=== PATIENT | female | born 1945 | race Caucasian/White ===

== ENCOUNTER 2024-12-09 11:11 | Emergency (ER) | payer MEDICARE, SELFPAY ==
[2024-12-09] VITALS (7 sets, daily range): BP systolic 161–187; BP diastolic 45–68; PULSE 59–68; RESP 12–16; TEMP 36.4–36.6; O2SAT 95–100
--- NOTE | ~2024-12-09 | XR_ITS ---
XR chest 2V 12/09/2024 12:26 Indication: Chest pain Procedure: 2 view chest Comparison: No prior studies for comparison. Findings: Heart size normal. Right basilar infiltrates may represent atelectasis or developing pneumo amelia. No significant effusion, edema or pneumothorax. No acute osseous abnormality. Impression: 1: Right basilar infiltrates, atelectasis versus pneumonia. Reviewed, dictated and finalized at location A. Impression: 1: Right basilar infiltrates, atelectasis versus pneumonia.
--- NOTE | 2024-12-09 11:12 | ECG_ITS ---
Test Date: 2024-12-09 10:56:33 Measurements Intervals [place] Rate: 58 P: 12 TX: 292 QRS: 27 QRSD: 94 T: 84 QT: 415 QTc: 408 Interpretive Statements SINUS BRADYCARDIA WITH FIRST DEGREE AV BLOCK NONSPECIFIC T-WAVE ABNORMALITY- HIGH LATERAL LEADS BASELINE ARTIFACT- I, III, AVR, AVL, AVF BORDERLINE ECG No previous ECG available for comparison Electronically Signed On 12-09-2024 11:22:38 CDT by Yunier Vidales D.O.
[2024-12-09 11:41] LABS: Basophils Percent Auto 0.9 % (0.2-1.2); Eosinophils Absolute Auto 0.2 K/mm3 (0-0.3); Eosinophils Percent Auto 3.7 % (0-4.4); Hematocrit 40.8 % (37.0-47.0); Immature Granulocyte Absolute 0.02 K/mm3 (0.00-0.031); Immature Granulocyte Percent A 0.5 % (0-0.5); Lymphocytes Percent Auto 25.4 % (18.3-44.2); Mean Corpuscular HGB Conc 31.9 g/dl (32-36); Mean Corpuscular Volume 90.9 fl (80-100); Mean Platelet Volume 9.7 fl (7.4-10.4); Monocytes Absolute Auto 0.5 K/mm3 (0.1-0.6); Monocytes Percent Auto 10.4 % (2.6-8.5); Neutrophils Absolute Auto 2.6 K/mm3 (1.3-6.7); Neutrophils Percent Auto 59.1 % (45.5-73.1); Platelet Count Result 166 k/mm3 (150-375); Red Blood Count 4.49 M/mm3 (4.2-5.4); Red Cell Distribution Width 12.9 % (11.5-14.5); White Blood Count 4.3 K/mm3 (4.5-10.0)
--- NOTE | 2024-12-09 11:43 | PC.NURSE ---
1115-Bedside report-met patient and daughter
[2024-12-09 11:56] LABS: Alanine Aminotransferase 28 U/L (6-35); Albumin Level 4.1 g/dL (3.5-5.1); Alkaline Phosphatase 80 U/L (38-126); Anion Gap 7 mmol/L (4-12); Aspartate Amino Transferase 34 U/L (14-36); Bilirubin,Total 0.4 mg/dL (0.2-1.3); Blood Urea Nitrogen 15 mg/dL (7-17); Calcium 9.6 mg/dL (8.4-10.2); Carbon Dioxide 27 mmol/L (22-30); Chloride 103 mmol/L (98-107); Estimated CRCL calculation 67 ml/min; Estimated Glomerular Filt Rate > 60; Glucose 106 mg/dL (65-110); Lipase 65 U/L (23-300); Potassium 4.1 mmol/L (3.4-5.0); Sodium 137 mmol/L (137-145); Total Protein 7.2 g/dL (6.3-8.2)
[2024-12-09 12:07] LABS: Troponin I < 0.012 ng/mL (0.000-0.034)
--- OUTSIDE RECORDS SUMMARY | 2024-12-09 12:15 | XMS_ITS | Encounter Summary ---
Author Organization [facility] Address [address] [facility] [place] [address] Phone Care Team Providers Care Vocational Training Instructor Name Role Phone Joe Blount DO Unavailable Jorge Wallace MD Unavailable Luigi Gamez OD Unavailable [phone] Varun Fofana DC Unavailable Rodger Dawson APRN, FLOAT OPERATOR Primary Care Provi mai Reason for Visit * Reason Onset Date Comments Chest Pain 12/09/2024 Encounter Details Date Type Department Care Team (Late st Contact Info) Description 12/09/2024 Nurse Triage [facility] [address] [place] [address] Rodger Dawson APRN, FLOAT OPERATOR [address] [place] [address] Chest Pain Social History Tobacco Use Types Packs/Day Years Used Date Smoking Tobacco: Never Smokeless Tobacco: Never Alcohol Use Standard Drinks/Week Comments Yes 0 (1 standard drink = 0.6 oz pur e alcohol) one glass red wine at bedtime [facility] Utilities Answer Date Recorded In the past 12 months has e electric, gas, oil, or water company threatened to shut off services in your home? Patient declined 07/25/2023 Social Connection and Isolation Panel [NHANES] A nswer Date Recorded In a typical week, how many times do you talk on the phone with family, friends, or neighbors? Patient declined 07/25/2023 How often do you get togethe r with friends or relatives? Patient declined 07/25/2023 How often do you attend yarsanism or jehovah's witness serv ices? Patient declined 07/25/2023 Do you belong to any clubs o r organizations such as yarsanism groups, unions, fraternal or athletic groups, or school groups? Patient declined 07/25/2023 How often do you attend meet ings of the clubs or organizations you belong to? Patient declined 07/25/2023 Are you , , di vorced, , never , or living with a partner? Patient declined 07/25/2023 AUDIT-C Answer Date Recorded Q1: How often do you have a drink containing alc ohol? Patient declined 07/25/2023 Q2: How many drinks containi ng alcohol do you have on a typical day when you are drinking? Patient declined 07/25/2023 Q3: How often do you have si x or more drinks on one occasion? Patient declined 07/25/2023 Overall Financial Resource Strain (CARDIA) Answe r Date Recorded How hard is it for you to pa y for the very basics like food, housing, medical care, and heating? Patient declined 07/25/2023 PHQ-2 Answer Date Recorded Total Score - Questions 1-9 0 07/08 [facility] - Occupational Stress Questionnaire Answer Date Recorded Do you feel stress - tense, restless, nervous, or anxious, or unable to sleep at night because your mind is troubled all the time - these days? Patient declined 07/25/2023 Exercise Vital Sign Answer Date Recorde d On average, how many days pe r week do you engage in moderate to strenuous exercise (like a brisk walk)? Patient declined On average, how many minutes do you engage in exercise at this level? Patient declined 07/25/2023 Hunger Vital Sign Answer Date Recorded Within the past 12 months, y ou worried that your food would run out before you got the money to buy more. Patient declined Within the past 12 months, t he food you bought just didn't last and you didn't have money to get more. Patient declined PRAPARE - Transportation Answer Date Re corded In the past 12 months, has l ack of transportation kept you from medical appointments or from getting medications? Patient declined 07/25/2023 Lack of Transportation (Non-Medical) Not on file 07/25/2023 Housing Stability Vital Sign Answer Arya e Recorded In the last 12 months, was t here a time when you were not able to pay the mortgage or rent on time? Patient declined 07/25/19 24 Number of Places Lived in the Last Year Not on f ile 07/25/2023 In the last 12 months, was t here a time when you did not have a steady place to sleep or slept in a long-term (including now)? Patient declined 07/25/2023 Education Answer Date Recorded What is the highest level of school you have completed or the highest degree you have received? Some college, no degree 03/21/2021 Sexually Active Control Partners Comments Never Comments No Sex and Gender Information Value Date Recorded Sex Assigned at Not on file Legal Sex Female 3:44 AM NON LICENSED NUCLEAR PLANT OPERATOR Gender Identity Not on file Sexual Orientation Not on file documented as of this encounter Miscellaneous Notes * Telephone Encounter - Brianna Byrne RN - 12/09/2024 9:43 AM CDT SITUATION: Patient calling to report symptoms BACKGROUND: Patient contacting PCP office. Continuous chest pain past 5 minutes or greater Patient driving in [place] with daughter at this time ASSESSMENT: Symptom Description / Location: Chest pain just above right breast past 5 minutes; strong, heavy ache Radiating up toward shoulder and into jaw RECOMMENDATION: Call 911 now Patient is agreeable to recommendation above. Patient advised to lathe puller now; states she will lathe puller and contact 911 per self Patient advised to return call to PCP office with any further needs Care advice provided per triage guideline. Caller verbalized understanding. - See care advice and disposition for Guideline. First positive answer recorded, all responses to prior questions were negative. If symptoms increase, change or if new symptoms develop, call your health care provider or call back. Recommendations were based on caller information and is not a diagnosis. Verified and reviewed all triage information with caller. Reason for Disposition Chest pain lasting longer than 5 minutes and over 44 years old Protocols used: Chest Pain-A-[place] * Telephone Encounter - Susu Clark - 12/09/2024 9:42 AM CDT Symptom: Chest Pain - Adult Outcome: Transfer to obedience trainer queue Reason: Caller denied all higher acuity questions The caller accepted this outcome. Caller Denied: * Trouble breathing * Passed out * Severe pain now * Heaviness on chest documented in this encounter Plan of Treatment Upcoming Encounters Date Type Department Care Team (Late st Contact Info) Description 02/18/2025 9:15 AM CDT Appointment [facility] Mammography [address] [place] [address] Rodger Dawson APRN, FLOAT OPERATOR [address] [place], [place] [id number] Discharge Disposition: Discharged to home or Selfcare 02/18/2025 9:30 AM CDT [facility] [address] [place] [address] Rodger Dawson APRN, FLOAT OPERATOR [address] [place] [address] Discharge Disposition: Discharged to home or Selfcare 08/02/2025 10:40 AM NON LICENSED NUCLEAR PLANT OPERATOR Office [facility] - [facility] [address] [place] [address] Rodger Dawson APRN, FLOAT OPERATOR [address] [place] [address] documented as of this encounter Visit Diagnoses Not on filedocumented in this encounter Additional Health Concerns Assessment Noted Time PHQ-9 Depression Total Score: 0 07/30/19 25 9:46 AM NON LICENSED NUCLEAR PLANT OPERATOR documented as of this encounter Care Teams Vocational Training Instructor Relationship Specialty Start Date End Date Rodger Dawson APRN, FLOAT OPERATOR [address] [place], [place] [address] PCP - General Advanced Practice Nurse 07/19/22 Joe Blount DO Consulting Physician Orthopaedic Surgery 12/29/19 Jorge Wallace MD [address] [place] [address] Consulting Physician Cardiovascular Disease - Cardiology 12/29/19 Luigi Gamez OD [address] [place], [place] [id number] Optometry 12/29/19 Varun Fofana DC [address] [place] [address] Chiropractic Medicine 12/29/19 documented as of this encounter
--- OUTSIDE RECORDS SUMMARY | 2024-12-09 12:15 | XMS_ITS | Clinical Summary ---
Author Organization [facility] Address [address] [place] [address] Phone Care Team Providers Care Electrification Adviser Name Role Phone Harris Beck MD Primary Care Provider Rosendo labceci Allergies Active Allergy Reactions Criticality Noted Date Comments Alendronate Sodium Nausea 12/27/2019 Upset and stomach and diarrhea Cephalexin Rash Medium 01/10/2014 Tramadol Other; see comment High 12/17/2018 Light headed and dizziness Medications acetaminophen 325 mg tablet Take 325 mg by mouth Active Active Problems No known active problems Immunizations Immunization Administration Dates Next Due HEP B (Engerix 1ml) 09/28/1999,08/28/1999 Hepatitis A - Adult 08/28/1999 Influenza (Flu Quad PF) 06/11/2005,04/14/1997 Meningococcal (MENOMUNE) 10/22/1999 T-dap (ADACEL) 03/01/2008 TB-PPD 02/22/2004 Td - Adult (PF) 11/18/1997 Unlisted Immunization 10/22/1999,08/28/1999 Social History Tobacco Use Types Packs/Day Years Used Date Smoking Tobacco: Never Smokeless Tobacco: Never Tobacco Cessation:Counseling Given: Not Answered Comments Unknown Sex and Gender Information Value Date Recorded Sex Assigned at Not on file Legal Sex Female 7:59 AM POWER 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 Gender Identity Not on file Sexual Orientation Not on file Plan of Treatment Health Maintenance Due Date Last Done Comments Osteoporosis Screening needs DEXA 1945 Depression Screening 1957 HCPOA Document on File 1995 Zoster (Shingles) Vaccine (1 of 2) 1995 Hepatitis B Vaccines (3 of 3 - 19+ 3-dose series) 02/26/2000 09/28/1999, 08/28/1999 Fall Screening 2010 Screening for Diabetes 03/16/2012 9, 01/18/2009, 09/12/2008, Additional history exists DTaP/Tdap/Td Vaccines (2 - Td or Tdap) 03/01/2018 03/01/2008, 03/01/2008, 11/18/1997 RSV Vaccine (60+/) (1 - 1-dose 75+ series) 2020 Eligible for Subsequent Annual Medicare Wellness Exam 12/28/2020 COVID-19 Vaccine (3 - season) 2024 07/18/2021, 07/07/2021 Influenza Vaccine (Season Ended) 2025 05/27/2016, 06/11/2005, 04/14/1997 Hepatitis A Vaccines Aged Out 08/28/1999 No long er eligible based on patient's age to complete this topic Meningococcal Vaccine (ACWY) Aged Out 10/22/1999, 10/22/1999 No longer eligibl e based on patient's age to complete this topic Pneumococcal Vaccines (50+) Completed 05/08, 04/24/2010, 03/09/2010 Eligible for Initial Annual Medicare Wellness Exam Discontinued 12/29/2019 HIB Vaccines Aged Out No longer eligi ble based on patient's age to complete this topic HPV Vaccines Aged Out No longer eligi ble based on patient's age to complete this topic IPV Vaccines Aged Out No longer eligi ble based on patient's age to complete this topic Meningococcal B Vaccine Aged Out No l onger eligible based on patient's age to complete this topic Rotavirus Vaccines Aged Out No longer eligible based on patient's age to complete this topic Procedures Procedure Name Priority Date/Time Associated Diagnosis Comments COMPREHENSIVE METABOLIC PANEL Routine 03/16/2009 7:08 AM CDT from Last 3 Months or Most Recently Relevant to Health Maintenance Results * (ABNORMAL) COMP METABOLIC PANEL (03/16/2009 7:08 AM CDT) CALCIUM 8.8 8.5 - 10.5 mg/dl [facility] GLUCOSE 113(H) 60 - 99 mg/dl [facility] BUN 16 6 - 20 mg/dl [facility] CREATININE 0.67 0.50 - 1.20 mg/dl [facility] TOTAL PROTEIN 6.5 6.0 - 8.1 gm/dl [facility] ALBUMIN 3.7 3.2 - 5.5 gm/dl [facility] BILIRUBIN, TOTAL 0.4 0.2 - 1.0 mg/dl [facility] AST 25 12 - 42 IU/L [facility] ALT 28 9 - 49 IU/L [facility] ALKALINE PHOSPHATASE 103 42 - 121 IU/L [facility] SODIUM 140 135 - 145 mmol/L [facility] POTASSIUM 4.2 3.6 - 5.0 mmol/L [facility] CHLORIDE 105 101 - 111 mmol/L [facility] CO2 29.3 21.0 - 31.0 mmol/L [facility] Comment:[facility], [address] [place] [address] 03/16/2009 7:08 AM CDT 03/16/2009 10:14 AM CDT Harris Beck MD HEM/CHEM/IMMUN-BLOOD Final Re sult Performing Organization Address City/State/[facility] Co de Phone Number [facility] [address] [place] [address] from Last 3 Months or Most Recently Relevant to Health Maintenance Insurance [facility] MEDICARE ADVANTAGE [employer] MEDICARE ADVANTAGE Care Teams Electrification Adviser Relationship Specialty Start Date End Date Harris Beck MD PCP - General Family Medicine 12/26/21
--- OUTSIDE RECORDS SUMMARY | 2024-12-09 12:15 | XMS_ITS | Encounter Summary ---
Author Organization [facility] Address [address] [place] [address] Phone Care Team Providers Care Regional Intermodal Truck Driver Name Role Phone Harris Beck MD Primary Care Provider Joe Blount DO Unavailable Jorge Wallace MD Unavailable Luigi Gamez OD Unavailable [phone] Varun Fofana DC Unavailable Ragini Baires APRN, CARPET JOURNEYMAN Unavailable [phone] Rodger Dawson APRN, CARPET JOURNEYMAN Primary Care Provi mai Encounter Details Date Type Department Care Team (Late st Contact Info) Description 11/21/2020 Telephone [facility] - [place] [address] [facility] [place] [address] Joe Blount, DO [address] [place], [place] [address] Social History Tobacco Use Types Packs/Day Years Used Date Smoking Tobacco: Never Smokeless Tobacco: Never Alcohol Use Standard Drinks/Week Comments Yes 0 (1 standard drink = 0.6 oz pur e alcohol) one glass red wine at bedtime AUDIT-C Answer Date Recorded Frequency of Alcohol Consumption 4 or more times a week 11/06/2018 Average Number of Drinks 1 or 2 019 Frequency of Binge Drinking Not on file 09/2018 PHQ-2 Answer Date Recorded Total Score - Questions 1-9 0 01/06 Sexually Active Control Partners Comments Never Comments No Sex and Gender Information Value Date Recorded Sex Assigned at Not on file Legal Sex Female 3:44 AM LOFTSMAN Gender Identity Not on file Sexual Orientation Not on file documented as of this encounter Plan of Treatment Upcoming Encounters Date Type Department Care Team (Late st Contact Info) Description 02/18/2025 9:15 AM CDT [facility] [address] [place] [address] Rodger Dawson APRN, CARPET JOURNEYMAN [address] [place] [address] Discharge Disposition: Discharged to home or Selfcare 02/18/2025 9:30 AM CDT Appointment [facility] Mammography [address] [place] [address] Rodger Dawson APRN, CARPET JOURNEYMAN [address] [place] [address] Discharge Disposition: Discharged to home or Selfcare 08/02/2025 10:40 AM LOFTSMAN Office Visit [facility] - [facility] [address] [place] [address] Rodger Dawson APRN, CARPET JOURNEYMAN [address] [place] [address] documented as of this encounter Visit Diagnoses Not on filedocumented in this encounter Additional Health Concerns Infection Onset Date Last Indicated Resolved Time COVID - 19 03/19/2023 03/19/2023 03/29/2023 12:1 6 AM CDT COVID - 19 05/24/2023 05/24/2023 06/03/2023 12:1 6 AM LOFTSMAN Assessment Noted Time PHQ-9 Depression Total Score: 0 02/04/20 10:00 AM CDT documented as of this encounter Care Teams Regional Intermodal Truck Driver Relationship Specialty Start Date End Date Harris Beck MD PCP - General 04/11/09 07/18/22 Rodger Dawson APRN, CARPET JOURNEYMAN [address] [place] [address] PCP - General Advanced Practice Nurse 07/19/22 Joe Blount DO Consulting Physician Orthopaedic Surgery 12/29/19 Jorge Wallace MD [address] [place] [phone] Consulting Physician Cardiovascular Disease - Cardiology 12/29/19 Luigi Gamez OD [address] [place] [address] Optometry 12/29/19 Varun Fofana, UZAIR [address] [place] [address] [place] [address] Chiropractic Medicine 12/29/19 Ragini Baires APRN, CARPET JOURNEYMAN [address] [place] [address] Nurse Practitioner Advanced Practice Nurse 10/04/21 documented as of this encounter
--- OUTSIDE RECORDS SUMMARY | 2024-12-09 12:15 | XMS_ITS | Encounter Summary ---
Author Organization [facility] Address [address] [place] [address] Phone Care Team Providers Care Fish And Wildlife Technician Name Role Phone Harris Beck MD Primary Care Provider Joe Blount DO Unavailable Jorge Wallace MD Unavailable Luigi Gamez OD Unavailable [phone] Varun Fofana DC Unavailable Ragini Baires APRN, DIESEL FITTER MECHANIC Unavailable [phone] Rodger Dawson APRN, DIESEL FITTER MECHANIC Primary Care Provi mai Encounter Details Date Type Department Care Team (Late st Contact Info) Description 04/17/2021 Lab [facility] COVID19 Drive Thru Collection [address] [place] [address] Gustavo Castillo MD [address] [place] [address] Pre-op testing (Primary Dx) Social History Tobacco Use Types Packs/Day Years [...] Total Score - Questions 1-9 0 01/06 Education Answer Date Recorded What is the highest level of school you have completed or the highest degree you have received? Some college, no degree 03/21/2021 Sexually Active Control Partners Comments Never Comments No Sex and Gender Information Value Date Recorded Sex Assigned at Not on file Legal Sex Female 3:44 AM DIRECTOR APPAREL Gender Identity Not on file Sexual Orientation Not on file COVID-19 Exposure Response Date Recorded In the last month, have you been in contact with someone who was confirmed or suspected to have Coronavirus / COVID-19? No / Unsure 04/13/2021 10:22 AM CDT documented as of this encounter Plan of Treatment Upcoming Encounters Date Type Department Care Team (Late st Contact Info) Description 02/18/2025 9:15 AM CDT [facility] [address] [place] [address] Rodger Dawson APRN, DIESEL FITTER MECHANIC [address] [place] [address] Discharge Disposition: Discharged to home or Selfcare 02/18/2025 9:30 AM CDT Appointment [facility] Mammography [address] [place] [address] Rodger Dawson APRN, DIESEL FITTER MECHANIC [address] [place] [address] Discharge Disposition: Discharged to home or Selfcare 08/02/2025 10:40 AM DIRECTOR APPAREL Office [facility] [address] [place] [address] Rodger Dawson APRN, DIESEL FITTER MECHANIC [address] [place] [address] documented as of this encounter Results * SARS-COV-2 BY MOLECULAR (04/20/2021 1:26 PM CDT) SARSCOV2 NOT DETECTED (Referen ce Range for this test is Not Detected ) [facility] THERMOFISHER FAST DX 04/21/2021 10:48 AM CDT [facility] Comment:This test was perfor med by a RT-PCR method. Other NASAL STRUCTURE / Unknown COVID 19 Collection / Unknown 04/20/2021 1:26 PM CDT 04/20/2021 1:26 PM CDT Narrative [facility] - 04/21/2021 10:48 AM CDT Authorized Fact Sheets about this test for providers and patients are available at: https://www.fda.gov/medical-devices/qpyimrxhe-sazfmppmgy-ucfuudg-devices/emergen -us e-authorizations us Gustavo Castillo MD MICROBIOLOGY - GENERAL ORDERAB LES Final Result Performing Organization Address City/State/[facility] Co de Phone Number [facility] [address] [place] [address], documented in this encounter Visit Diagnoses Diagnosis Pre-op testing- Primary Preoperative examination, unspecified documented in this encounter Additional Health Concerns Infection Onset Date Last Indicated Resolved Time COVID - 19 03/19/2023 03/19/2023 03/29/2023 12:1 6 AM CDT COVID - 19 05/24/2023 05/24/2023 06/03/2023 12:1 6 AM DIRECTOR APPAREL Assessment Noted Time PHQ-9 Depression Total Score: 0 02/04/20 20 10:00 AM CDT documented as of this encounter Care Teams Fish And Wildlife Technician Relationship Specialty Start Date End Date Harris Beck MD PCP - General 04/11/09 07/18/22 Rodger Dawson APRN, DIESEL FITTER MECHANIC [address] [place] [address] PCP - General Advanced Practice Nurse 07/19/22 Joe Blount DO Consulting Physician Orthopaedic Surgery 12/29/19 Jorge Wallace MD [address] [place] [phone] Consulting Physician Cardiovascular Disease - Cardiology 12/29/19 Luigi Gamez OD [address] [place] [address] Optometry 12/29/19 Varun Fofana DC [address] [facility] [address] [place] [address] Chiropractic Medicine 12/29/19 Ragini Baires APRN, DIESEL FITTER MECHANIC [address] [place] [address] Nurse Practitioner Advanced Practice Nurse 10/04/21 documented as of this encounter
--- OUTSIDE RECORDS SUMMARY | 2024-12-09 12:15 | XMS_ITS | Clinical Summary ---
Author Organization [facility] Address [address] [place] [address] Phone Care Team Providers Care Interior Design Coordinator Name Role Phone Joe Blount DO Unavailable [phone] Jorge Wallace MD Unavailable Luigi Gamez OD Unavailable [phone] Varun Fofana DC Unavailable Rodger Dawson ARCHIVAL RECORDS CLERK, LUBE TECHNICIAN Primary Care Provi mai Allergies Active Allergy Reactions Criticality Noted Date Comments Cephalexin Rash Medium 01/10/2014 Alendronate Sodium Nausea 12/27/2019 Upset and stomach and diarrhea Tramadol Other (see Comments) High 12/17/2018 Light headed and dizziness Medications B Complex Vitamins (VITAMIN B COMPLEX PO) Take by mouth daily. Active other Take by mouth daily. OTC antioxidant OPC Active Calcium Carb-Cholecalci ferol (CALCIUM 600 + D PO) Take by mouth daily. Active Multiple Vitamin (MULTI-VITAMIN PO) Take by mouth. Activ e Zinc 22.5 MG Tablet Take by mouth. Activ e Ascorbic Acid (VITAMIN C PO) Take by mouth. Active GARLIC PO Take 2 Tablets by mouth daily. Active TURMERIC PO Take by mouth daily. Active MAGNESIUM PO Take by mouth. 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 07/19/2022 Chronic right shoulder pain 07/19/2022 Age-related osteoporosis wit hout current pathological fracture 07/19/2022 PAD (peripheral artery disease) 01/05/2020 Nonrheumatic aortic valve stenosis 02/19/2019 Primary osteoarthritis of right knee 11/25/2018 Diverticulosis 11/13/2018 Morbid obesity due to excess calories 04/01/2016 Hallux valgus, acquired 05/08/2009 Calculus of gallbladder 01/31/2009 Overview (03/30/2009): Tyler Alves MD Sinusitis, chronic 08/22/2004 Overview (03/30/2009): Harris Beck MD Rotator cuff (capsule) sprain 10/04/2003 Overview (03/30/2009): Jung Peguero MD Carpal tunnel syndrome 06/10/2003 Overview (03/30/2009): Jung Peguero MD Resolved Problems Problem Noted Date Diagnosed Date Resolved Date Hyperlipidemia 03/09/2010 04/10/2015 Prediabetes 03/09/2010 05/27/2016 Calculus of gallbladder with other cholecystitis without obstruction 02/06/20092009 Overview (03/30/2009): Tyler Alves MD Essential hypertension, benign 07/18/2003 03/09/2010 Overview (03/30/2009): Chu Recinos MD Encounters Date Type Department Care Team Description 12/09/2024 [facility] [address] [place] [id number] Rodger Dawson APRN, CNP Chest Pain 11/05/2024 7:40 AM CDT Office Visit [facility] - [facility] [address] [place] [address] Rodger Dawson APRN, CNP Thrombophlebitis of superficial veins of both lower extremities (Primary Dx) Discharge Disposition: Discharged to home or Selfcare 11/05/2024 Travel 10/22/2024 4:24 PM CDT - 10/22/2024 5:44 PM CDT Emergency [facility] Emergency [address] [place] [phone] Mbuvi, Katherin Hanna, PAC Thrombophlebitis Discharge Disposition: Discharged to home or Selfcare 10/22/2024 Travel 10/22/2024 Nurse Triage [facility] [address] [phone] Rodger Dawson APRN, LEANA Advice Only; Knee Pain; Leg Pain 10/06/2024 2:20 PM CDT Office Visit [facility] [address] [place] [phone] Rodger Dawson APRN, LEANA Nonrheumatic aortic valve stenosis (Primary Dx); Skin lesions; Sebaceous cyst; Age-related osteoporosis without current pathological fracture; Primary osteoarthritis of right shoulder; PAD (peripheral artery disease) ([facility]) Discharge Disposition: Discharged to home or Selfcare 10/06/2024 Travel 10/06/2024 Nurse Triage [address] [phone] Rodger Dawson APRN, LEANA Rash 10/01/2024 10:00 AM CDT - 10/01/2024 11:59 PM CDT Hospital Encounter [facility] Mammography [address] [place] [address] Rodger Dawson APRN, LEANA Discharge Disposition: Discharged to home or Selfcare 10/01/2024 Results Follow-Up [facility] [address] [place] [address] Rodger Dawson APRN, LEANA NIALL BONE DENSITOMETRY AXIAL SKELETON 10/01/2024 Travel 09/15/2024 Results Follow-Up [facility] [address] [place] [address] Rodger Dawson APRN, LEANA ADULT TRANS THORACIC ECHO 2D COMPLETE 09/14/2024 1:00 PM CDT - 09/14/2024 11:59 PM CDT Hospital Encounter [facility] [address] [place], [place] [phone] oRdger Dawson APRN, LEANA Discharge Disposition: Discharged to home or Selfcare 09/14/2024 Travel 09/14/2024 Telephone [facility] [address] [place] [address] Rodger Dawson APRN, LEANA Follow-up from Last 3 Months Immunizations Immunization Administration Dates Next Due Covid-19 Vaccine, Vector-nr, Rs-ad26, Pf, 0.5 Ml ([employer]) 07/07/2021 Hepatitis A Vaccine 08/28/1999 Hepatitis B Vaccine 09/28/1999,08/28/1999 Influenza Vaccine greater than 3 yrs 06/11/2005 Influenza Vaccine, Quadrivalent, PF 01/2022,08/07/2020,08/20/2019,06/22,06/16/2017 Influenza, high-dose, trivalent, PF 05/27/2016 Meningococcal Vaccine 10/22/1999 PNEUMONIA ADULT IM [id number] 03/09/2010 PUR FLU HIGH DOSE (FLUZONE) 05/27/2016 PUR FLU W/PRES AGE 3+ FULL IM 05/19/2009 PUR PCV-13 05/27/2016 Pneumococcal Vaccine - 13 Valent 05/27/2016 Pneumococcal Vaccine Adult - 23 Valent 0 TB Skin Test 02/22/2004 TD VACCINE 03/01/2008 TDAP Vaccine 04/02/2018 Tuberculin Skin Test; Purifi ed Protein Derivative Solutiol 02/22/2004 Family History Medical History Relation Name Comments Cancer Father hx of skin and prostate age 89 Congestive Heart Failure Father Anemia Mother hx of Heart Disease Mother , ?aneurysm Cancer Sister 1 colon age 60 Anemia Sister 2 Breast Cancer Neg Hx Relation Name Status Comments Brother well Father esophageal canc er Mother Alive anemia Sister 1 Alive colon ca Sister 2 Alive well Social History Tobacco Use Types Packs/Day Years Used Date Smoking Tobacco: Never Smokeless Tobacco: Never Tobacco Cessation:Counseling Given: No Alcohol Use Standard Drinks/Week Comments Yes 0 (1 standard drink = 0.6 oz pur e alcohol) one glass red wine at bedtime [facility] Utilities Answer Date Recorded In the past 12 months has th e electric, gas, oil, or water company [...] declined 07/25/2023 How often do you attend evangelical or worship serv ices? Patient declined 07/25/2023 Do you belong to any clubs o r organizations such as evangelical groups, unions, fraternal or athletic groups, or [...] Total Score - Questions 1-9 0 07/08 [facility] [place] of Occupat ional Health - Occupational Stress Questionnaire Answer Date Recorded [...] place to sleep or slept in a care home (including now)? Patient declined 07/25/2023 Education Answer Date Recorded What is the highest level of school you have completed or the highest degree you have received? 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 Gender Identity Not on file Sexual Orientation Not on file Last Filed Vital Signs Vital Sign Reading Time Taken Comments Blood Pressure 112/88 11/05/2024 7:34 AM CDT Pulse 65 11/05/2024 7:34 AM CDT Temperature 36 C (96.8 F) 11/05/2024 7:34 AM CDT Respiratory Rate 16 11/05/2024 7:34 AM CDT Oxygen Saturation 98% 11/05/2024 7:34 AM CDT Inhaled Oxygen Concentration - - Weight 101.2 kg (223 lb) 11/05/2024 7:34 AM CDT Height 160 cm (5' 3) 11/05/2024 7:34 AM CDT Body Mass Index 39.5 11/05/2024 7:34 AM CDT Plan of Treatment Upcoming Encounters Date Type Department Care Team (Late st Contact Info) Description 02/18/2025 9:15 AM CDT [facility] [address] [place] [address] Rodger Dawson APRN, LUBE TECHNICIAN [address] [place], [place] [phone] Discharge Disposition: Discharged to home or Selfcare 02/18/2025 9:30 AM CDT [facility] [address] [place] [address] Rodger Dawson APRN, LUBE TECHNICIAN [address] [place] [address] Discharge Disposition: Discharged to home or Selfcare 08/02/2025 10:40 AM HOME AND SCHOOL VISITOR Office Visit [facility] [address] [place] [address] Rodger Dawson APRN, LUBE TECHNICIAN [address] [place] [address] Health Maintenance Due Date Last Done Comments Hepatitis C Virus (HCV) Screening 1945 Zoster Immunization (1 of 2) 1995 Hepatitis B Immunization (3 of 3 - 19+ 3-dose series) 02/26/2000 09/28/1999, 08/28/1999 Respiratory Syncytial Virus (RSV) Immunization (Adult) (1 - 1-dose 75+ series) 2020 Influenza Immunization (Season Ended) 2025 07/13/2021, 08/07/2020, 08/20/2019, Additional history exists DEXA Bone Density 10/01/2026 10/01/2024, , 07/23/2019, Additional history exists Td Immunization Every 10 Years (Adults With 1 Tdap) 04/02/2028 04/02/2018, 03/01/2008, 11/18/1997 Meningococcal Immunization (ACWY) Aged Out 10/22/1999 No longer eligible based on patient's age to complete this topic Pneumococcal Immunization (50+ years) Completed 05/27/2016, 05/27/2016, 04/24/2010, Additional history exists Pneumococcal Immunization Combined Discontinued 05/27/2016, 05/27/2016, 04/24/2010, Additional history exists DTaP/Tdap/Td Immunization Discontinued 2017, 03/01/2008, 11/18/1997 Colonoscopy High Risk Discontinued 11/13/2018, 006 Colonoscopy Discontinued 11/13/2018, 01/15/2006 Colorectal Cancer Screening Discontinued SARS-COV-2 Immunization Discontinued 07/07/2021 Mammogram Discontinued 12/16/2023, 09/04, 08/21/2021, Additional history exists Cologuard Discontinued Human Papillomavirus (HPV) Immunization Aged Out No longer eligible based on patient's age to complete this topic Immunochemical Fecal Occult Blood Discontinued Rotavirus Immunization Aged Out No lo nger eligible based on patient's age to complete this topic Medical Devices Implanted Type Area Shell Fisherman Device Identifier Shelf Expiration Date Model / Serial / Lot Cement Bone Simplex Gentamicin High Viscosity 40gm - [id number] Implanted:Qty: 2 on 11/23/2018 by Joe Blount DO at [facility] IMPLANT Left: Knee [employer] 06/05/2020 6195-1-001 / / [id number] Component Patellar 8mm 29mm Symmetric Triathlon X3 Knee - [id number] Implanted:Qty: 1 on 11/23/2018 by Joe Blount DO at [facility] IMPLANT Left: Knee [employer] 07/07/2023 5550-G-298 / / [id number] Baseplate Tib Triathlon 3 Knee Total Stab - [id number] Implanted:Qty: 1 on 11/23/2018 by Joe Blount DO at [facility] IMPLANT Left: Knee [employer] 09/02/2023 5521-B-300 / / [id number] Component Fem 4 Knee Left Crurtn Cmnt Triathlon - [id number] Implanted:Qty: 1 on 11/23/2018 by Joe Blount DO at [facility] IMPLANT Left: Knee [employer] 05/06/2023 5510-F-[id number] / / [id number] Insert Tib 3 13mm Knee X3 Condylar Stabilized Triathlon - [id number] Implanted:Qty: 1 on 11/23/2018 by Joe Blount DO at [facility] IMPLANT Left: Knee [employer] 08/05/2023 5531-G-[id number] / / [id number] Cement Bone Simplex Gentamicin High Viscosity 40gm - [id number] Implanted:Qty: 1 on 03/01/2019 by Joe Blount DO at [facility] IMPLANT Right: Knee [employer] 08/06/2020 6195-1-001 / / [id number] Baseplate Tib Triathlon 3 Knee Cmnt Primary - [id number] Implanted:Qty: 1 on 03/01/2019 by Joe Blount DO at [facility] IMPLANT Right: Knee [employer] 09/06/2023 5520-B-300 / / [id number] Component Fem 4 Knee Right Crurtn Cmnt Triathlon - [id number] Implanted:Qty: 1 on 03/01/2019 by Joe Blount DO at [facility] IMPLANT Right: Knee [employer] 11/14/2023 5510-F-402 / / [id number] Component Patellar 8mm 29mm Symmetric Triathlon X3 Knee - [id number] Implanted:Qty: 1 on 03/01/2019 by Joe Blount DO at [facility] IMPLANT Right: Knee [employer] 12/09/2022 5550-G-298 / / [id number] Insert Tib 3 13mm Knee X3 Condylar Stabilized Triathlon - [id number] Implanted:Qty: 1 on 03/01/2019 by Joe Blount DO at [facility] IMPLANT Right: Knee [employer] 12/02/2023 5531-G-313 / / [id number] Cement Bone Simplex Gentamicin High Viscosity 40gm - [id number] Implanted:Qty: 1 on 03/01/2019 by Joe Blount DO at [facility] IMPLANT Right: Knee [employer] 09/03/2020 6195-1-001 / / [id number] Explanted Type Area Shell Fisherman Device Identifier Shelf Expiration Date Model / Serial / Lot Pin Bone [id number] - [id number] Explanted:Qty: 1 on 11/23/2018 by Joe Blount DO at [facility] IMPLANT Left: Knee [employer] 06/19/2023 [id number] / / [id number] Pin Bone [id number] - [id number] Explanted:Qty: 1 on 11/23/2018 by Joe Blount DO at [facility] IMPLANT Left: Knee [employer] 07/13/2023 [id number] / / [id number] Kit Checkpoint Femoral/Tibial Sterile - [id number] Explanted:Qty: 1 on 11/23/2018 at [facility] IMPLANT Left: Knee [employer] 05/27/2023 [id number] / / [id number] Pin Bone [id number] - [id number] Explanted:Qty: 1 on 03/01/2019 at [facility] IMPLANT Right: Knee [employer] [id number] / / UNKNOWN Pin Bone [id number] - [id number] Explanted:Qty: 1 on 03/01/2019 at [facility] IMPLANT Right: Knee [employer] [id number] / / UNKNOWN Procedures Procedure Name Priority Date/Time Associated Diagnosis Comments US BILATERAL DUPLEX LOWER EXTREMITY VEINS Stat with Interpretation 10/22/2024 5:25 PM CDT [facility] BONE DENSITOMETRY AXIAL SKELETON Routine 10/01/2024 10:22 AM CDT Asymptomatic postmenopausal status Encounter for screening for osteoporosis ADULT TRANS THORACIC ECHO 2D COMPLETE Routine 09/14/2024 1:34 PM CDT Nonrheumatic aortic valve stenosis [facility] SCREENING BILATERAL DIGITAL W CAD W TONY Routine 12/16/2023 2:23 PM CDT Encounter for screening mammogram for malignant neoplasm of breast Dense breast tissue on mammogram, unspecified type Abnormal mammogram COLONOSCOPY Routine 11/13/2018 from Last 3 Months or Most Recently Relevant to Health Maintenance Results * US BILATERAL DUPLEX LOWER EXTREMITY VEINS (10/22/2024 5:25 PM CDT) Anatomical Region Laterality Modality vascular Bilateral Ultrasound 10/22/2024 4:33 PM CDT Impressions 10/23/2024 8:27 AM CDT IMPRESSION: 1. No deep vein thrombosis of either lower extremity. 2. Superficial thrombophlebitis within varicose veins in the bilateral mid calves. Preliminary medical imaging interpretation was provided by [facility]. Narrative 10/23/2024 8:27 AM CDT DICTATING PHYSICIAN: Man Galvez M.D. - [facility] EXAM: Bilateral lower extremity venous duplex, 10/22/2024 4:33 PM HISTORY: Bilateral leg pain. Evaluate for bilateral greater saphenous vein thrombophlebitis. COMPARISON: 05/22/2022. A venous duplex exam of both legs was performed. Color and spectral doppler images were obtained. The deep veins were examined for compressibility, augmentation, waveforms and echogenic intraluminal material. Waveforms also obtained from the external iliac veins. RIGHT: Waveforms: Unremarkable. Thigh veins: Common femoral, profunda femoral and femoral veins are normal. Popliteal vein: Normal. Calf veins: Posterior tibial and peroneal veins are normal. Superficial veins: Superficial varicose veins in the mid calf containing thrombus and are noncompressible. Popliteal cyst: None. LEFT: Waveforms: Unremarkable. Thigh veins: Common femoral, profunda femoral and femoral veins are normal. Popliteal vein: Normal. Calf veins: Posterior tibial and peroneal veins are normal. Superficial veins: Superficial varicose veins in the mid calf containing thrombus and are noncompressible. Popliteal cyst: None. Procedure Note Man Galvez MD - 10/23/2024 DICTATING PHYSICIAN: Man Galvez M.D. - [facility] EXAM: Bilateral lower extremity venous duplex, 10/22/2024 4:33 PM HISTORY: Bilateral leg pain. Evaluate for bilateral greater saphenousvein thrombophlebitis. COMPARISON: 05/22/2022. A venous duplex exam of both legs was performed. Color and spectraldoppler images were obtained. The deep veins were examined forcompressibility, augmentation, waveforms and echogenic intraluminalmaterial. Waveforms also obtained from the external iliac veins. RIGHT: Waveforms: Unremarkable. Thigh veins: Common femoral, profunda femoral and femoral veins arenormal. Popliteal vein: Normal. Calf veins: Posterior tibial and peroneal veins are normal. Superficial veins: Superficial varicose veins in the mid calf containingthrombus and are noncompressible. Popliteal cyst: None. LEFT: Waveforms: Unremarkable. Thigh veins: Common femoral, profunda femoral and femoral veins arenormal. Popliteal vein: Normal. Calf veins: Posterior tibial and peroneal veins are normal. Superficial veins: Superficial varicose veins in the mid calf containingthrombus and are noncompressible. Popliteal cyst: None. IMPRESSION: 1. No deep vein thrombosis of either lower extremity. 2. Superficial thrombophlebitis within varicose veins in the bilateral midcalves. Preliminary medical imaging interpretation was provided by [facility]. Don Bose APRN, LUBE TECHNICIAN [facility] ORDERABLES Val l Result * [facility] BONE DENSITOMETRY AXIAL SKELETON (10/01/2024 10:22 AM CDT) Anatomical Region Laterality Modality BODY N/A Other 10/01/2024 10:2 2 AM CDT Impressions 10/01/2024 12:26 PM CDT IMPRESSION: 1. Osteoporosis. 2. A follow-up exam in 1 to 2 years can be used to assess any change. Narrative 10/01/2024 12:26 PM CDT DICTATING PHYSICIAN: Rosalina Truong M.D. EXAM: [facility] BONE DENSITOMETRY AXIAL SKELETON. DATE: 10/01/2024 10:22 AM. COMPARISON: DEXA 01/21/2022 CLINICAL HISTORY: Asymptomatic menopausal state, Encounter for screening for osteoporosis. Screening for osteoporosis. Evaluate bone mineral density. FINDINGS: Bone mineral density (BMD) was assessed with dual-energy x-ray absorptiometry (DXA). The average BMD of the lumbar spine (L1-L4) for this exam is 1.048 g/cm2 with a T-score of 0, consistent with a normal BMD. Prior T score was -0.5. The average BMD of the left hip (the femoral neck area) for this exam is 0.542 g/cm2 with a T-score of -2.8, consistent with osteoporosis. Prior T score was -2.6. Procedure Note Rosalina Truong MD - 10/01/2024 DICTATING PHYSICIAN: Rosalina Truong M.D. EXAM: [facility] BONE DENSITOMETRY AXIAL SKELETON. DATE: 10/01/2024 10:22 AM. COMPARISON: DEXA 01/21/2022 CLINICAL HISTORY: Asymptomatic menopausal state, Encounter for screeningfor osteoporosis. Screening for osteoporosis. Evaluate bone mineraldensity. FINDINGS: Bone mineral density (BMD) was assessed with dual-energy x-rayabsorptiometry (DXA). The average BMD of the lumbar spine (L1-L4) for this exam is 1.048 g/cj4nvoz a T-score of 0, consistent with a normal BMD. Prior T score was-0.5. The average BMD of the left hip (the femoral neck area) for this exam is0.542 g/cm2 with a T-score of -2.8, consistent with osteoporosis. Prior Tscore was -2.6. IMPRESSION: 1. Osteoporosis. 2. A follow-up exam in 1 to 2 years can be used to assess any change. Rodger Dawson APRN, LEANA IMG DEXA ORDERABLES Final Result * ADULT TRANS THORACIC ECHO 2D COMPLETE (09/14/2024 1:34 PM CDT) AV Peak Grad mmHg 39.19 mmHg RESULTING AGENCY Mean Aortic Valve Gradient (MAVG) 20 mmHg RESULTING AGENCY LV end ming diam cm 4.58 cm RESULTING AGENCY LV end sys diam cm 2.61 cm RESULTING AGENCY Aortic Root Diam cm 3.1 cm RESULTING AGENCY LA vol index ml/m2 25 ml/m2 RESULTING AGENCY LVOT Peak Malvin m/sec 0.983 m/sec RESULTING AGENCY AV Peak Malvin m/sec 3.13 m/sec RESULTING AGENCY MV Mean Grad mmHg 2 mmHg RESULTING AGENCY E/A Ratio 0.63 RESULTING AGENCY E/E' 10.8 RESULTING AGENCY AV Area (VTI) cm2 0.88 cm2 RESULTING AGENCY SEPTUM DIASTOLIC CM 1.34 cm RESULTING AGENCY PW DIASTOLIC CM 1.24 cm RESU LTING AGENCY LA VOLUME 49.4 ml RESULTING AGENCY LV EF(estimated)% 73 RESULTING AGENCY Anatomical Region Laterality Modality CARDIO N/A Ultrasound Narrative 09/14/2024 3:45 PM CDT Transthoracic Echocardiography Report (TTE) Patient name LEE Bedoya.O.B. 1945 Patient ID (UPI) [id number] Indications: Aortic stenosis. Study Date09/14/2024 Technical quality: Adequate Type of Study: TTE procedure: M-Mode, Doppler , Color Doppler, Adult Trans Thoracic Echo 2D Complete, Myocardial Strain. Priority:RoutineHR: 67 bpmBP: 120/88 mmHg History of Disease +---------+ + + !Diagnosis!Date !Comments ! +---------+ + + !Other !07/08/2019!decreased L MANAGER LEARNING pulse, pre op hammer toe ! ! ! !surgery ! ! ! !patient states some leg pain-s/p bilat knee ! ! ! !replacements L>R ! +---------+ + + Conclusions Summary The left ventricle is normal in size, wall motion, and function. Ejection fraction is 70-75% Normal Average global longitudinal strain (GLS) - 17.5% Aortic valve tri-leaflet Moderate aortic stenosis. Peak velocity 3.13 m/s, peak/mean gradient 39/20 mmHg, Normal left atrial and pulmonary pressures Findings Mitral Valve Normal mitral valve structure and function. Aortic Valve Aortic valve appears tri-leaflet with moderate thickening and calcification. Moderate aortic stenosis. Peak velocity 3.13 m/s, peak/mean gradient 39/20 mmHg, aortic valve area 0.9 cm2. Tricuspid Valve Normal tricuspid valve structure and function. Pulmonary artery systolic pressure cannot be accurately estimated due to inadequate tricuspid regurgitant jet. Pulmonic Valve The pulmonic valve is not well seen but without significant stenosis or regurgitation. Left Atrium Normal left atrium. Left Ventricle The left ventricle is normal in size, wall motion, and function. Mild concentric left ventricular hypertrophy is present. The ejection fraction is 70-75%. Average global longitudinal strain (GLS) - 17.5%, utilizing [employer] software. Grade I diastolic dysfunction; Normal left atrial pressures E/E'' =< 8 Normal left atrial pressures Grossly Normal wall motion Right Atrium Right atrium is normal in size. Right Ventricle Right ventricle appears normal in size and function. Pericardial Effusion No pericardial effusion. Miscellaneous Aortic root is normal size. Aortic arch not well seen. IVC not seen well. Valves Mitral Valve Peak E-Wave: 0.61 m/s Area (continuity): 2.2 cm^2 Peak A-Wave: 0.97 m/s Mean Velocity: 0.63 m/s Peak Gradient: 1.49 mmHg Mean Gradient: 2 mmHg Deceleration Time: 243 msec Tissue Doppler E' Velocity: 0.04 m/s E/E':10.8 A' Velocity: 0.10 m/s E/Lat E': 10.8 E/A Ratio: 0.63 E/Med E':13.7 Aortic Valve Area (continuity): 0.88 cm^2 Mean Velocity: 2.12 m/s Area (VTI):0.88 cm^2 Mean Gradient: 20 mmHg Peak Velocity: 3.13 m/s AV VTI: 73.6 cm Peak Gradient: 39.19 mmHg Cusp Separation: 1.1 cm Tricuspid Valve Pulmonic Valve Peak Velocity: 1.34 m/s Peak Gradient: 7.18 mmHg LVOT Peak Velocity: 0.98 m/s Mean Velocity: 0.69 m/s Peak Gradient: 4 mmHg Mean Gradient: 2 mmHg LVOT Diameter: 1.9 cm LVOT VTI: 22.9 cm Stroke Volume: 65 ml Stroke Volume Index: 32.66 ml/m^2 Structures Left Ventricle Diastolic Dimension: 4.58 cm Systolic Dimension: 2.61 cm Septum Diastolic: 1.34 cm PW Diastolic: 1.24 cm Systolic Length: 10.5 cm Diastolic Length: 21.3 cm CI: 2.19 l/min*m^2 EF Calculated: 72.92% CO: 4.35 l/min RWT: 0.54 LV EDV: 48 ml LV EDV Index: 24 m^2 FS: 43.01 % LV ESV: 13 ml LV Length: 7.91 cm LV ESV Index: 7 m^2 LVOT Diameter: 1.9 cm Global Longitudinal Strain:-17.5 Right Ventricle RVOT (PLAX) diameter:2.98 cm Tissue Doppler TAPSE: 2.21 cm Left Atrium LA Dimension: 3.6 cm LA Area: 14.4 cm^2 LA/Aorta: 1.16 LA Volume: 49.4 ml LA Systolic Pressure: 15.49 mmHg LA Index: 25ml/m^2 Right Atrium RA Area: 11.4 cm^2 Great Vessels Aorta Ascending Aorta: 2.9 cm Aorta Root:3.1 cm Ascending Aorta Index:1.46 cm/m^2 Snapshots Demographics Age 79 Gender Female Race Height 62.01 in. Weight 219.01 lbs. BMI (BSA) 40.05 kg/m^2 (1.99 m^2) Fine Jewelry Sales Associate Uriel Son Interpreting Erlinda Campuzano Referring Rodger Dawson Physician DO Physician Procedure Note Justen Coffey DO - 09/14/2024 Transthoracic Echocardiography Report (TTE) Patient name LEE Mary DEMETRA Fermin 1945 Patient ID (UPI) [id number] Indications: Aortic stenosis. Study Date09/14/2024 Technical quality: Adequate Type of Study: TTE procedure: M-Mode, Doppler , Color Doppler, Adult Trans Thoracic Echo 2D Complete, Myocardial Strain. Priority:RoutineHR: 67 bpmBP: 120/88 mmHg History of Disease +---------+ + + !Diagnosis!Date !Comments ! +---------+ + + !Other !07/08/2019!decreased L MANAGER LEARNING pulse, pre op hammer toe ! ! ! !surgery ! ! ! !patient states some leg pain-s/p bilat knee ! ! ! !replacements L>R ! +---------+ + + Conclusions Summary The left ventricle is normal in size, wall motion, and function. Ejection fraction is 70-75% Normal Average global longitudinal strain (GLS) - 17.5% Aortic valve tri-leaflet Moderate aortic stenosis. Peak velocity 3.13 m/s, peak/mean gradient 39/20 mmHg, Normal left atrial and pulmonary pressures Findings Mitral Valve Normal mitral valve structure and function. Aortic Valve Aortic valve appears tri-leaflet with moderate thickening and calcification. Moderate aortic stenosis. Peak velocity 3.13 m/s, peak/mean gradient 39/20 mmHg, aortic valve area 0.9 cm2. Tricuspid Valve Normal tricuspid valve structure and function. Pulmonary artery systolic pressure cannot be accurately estimated due to inadequate tricuspid regurgitant jet. Pulmonic Valve The pulmonic valve is not well seen but without significant stenosis or regurgitation. Left Atrium Normal left atrium. Left Ventricle The left ventricle is normal in size, wall motion, and function. Mild concentric left ventricular hypertrophy is present. The ejection fraction is 70-75%. Average global longitudinal strain (GLS) - 17.5%, utilizing Busuu software. Grade I diastolic dysfunction; Normal left atrial pressures E/E'' =< 8 Normal left atrial pressures Grossly Normal wall motion Right Atrium Right atrium is normal in size. Right Ventricle Right ventricle appears normal in size and function. Pericardial Effusion No pericardial effusion. Miscellaneous Aortic root is normal size. Aortic arch not well seen. IVC not seen well. Valves Mitral Valve Peak E-Wave: 0.61 m/s Area (continuity): 2.2 cm^2 Peak A-Wave: 0.97 m/s Mean Velocity: 0.63 m/s Peak Gradient: 1.49 mmHg Mean Gradient: 2 mmHg Deceleration Time: 243 msec Tissue Doppler E' Velocity: 0.04 m/s E/E':10.8 A' Velocity: 0.10 m/s E/Lat E': 10.8 E/A Ratio: 0.63 E/Med E':13.7 Aortic Valve Area (continuity): 0.88 cm^2 Mean Velocity: 2.12 m/s Area (VTI):0.88 cm^2 Mean Gradient: 20 mmHg Peak Velocity: 3.13 m/s AV VTI: 73.6 cm Peak Gradient: 39.19 mmHg Cusp Separation: 1.1 cm Tricuspid Valve Pulmonic Valve Peak Velocity: 1.34 m/s Peak Gradient: 7.18 mmHg LVOT Peak Velocity: 0.98 m/s Mean Velocity: 0.69 m/s Peak Gradient: 4 mmHg Mean Gradient: 2 mmHg LVOT Diameter: 1.9 cm LVOT VTI: 22.9 cm Stroke Volume: 65 ml Stroke Volume Index: 32.66 ml/m^2 Structures Left Ventricle Diastolic Dimension: 4.58 cm Systolic Dimension: 2.61 cm Septum Diastolic: 1.34 cm PW Diastolic: 1.24 cm Systolic Length: 10.5 cm Diastolic Length: 21.3 cm CI: 2.19 l/min*m^2 EF Calculated: 72.92% CO: 4.35 l/min RWT: 0.54 LV EDV: 48 ml LV EDV Index: 24 m^2 FS: 43.01 % LV ESV: 13 ml LV Length: 7.91 cm LV ESV Index: 7 m^2 LVOT Diameter: 1.9 cm Global Longitudinal Strain:-17.5 Right Ventricle RVOT (PLAX) diameter:2.98 cm Tissue Doppler TAPSE: 2.21 cm Left Atrium LA Dimension: 3.6 cm LA Area: 14.4 cm^2 LA/Aorta: 1.16 LA Volume: 49.4 ml LA Systolic Pressure: 15.49 mmHg LA Index: 25ml/m^2 Right Atrium RA Area: 11.4 cm^2 Great Vessels Aorta Ascending Aorta: 2.9 cm Aorta Root:3.1 cm Ascending Aorta Index:1.46 cm/m^2 Snapshots Demographics Age 79 Gender Female Race Height 62.01 in. Weight 219.01 lbs. BMI (BSA) 40.05 kg/m^2 (1.99 m^2) Fine Jewelry Sales Associate Uriel Son Interpreting Erlinda Campuzano Referring Rodger Dawson Physician DO Physician Rodger Dawson ARCHIVAL RECORDS CLERK, LUBE TECHNICIAN IMG ECHO ORDERABLES Edited Result - Final * [facility] SCREENING BILATERAL DIGITAL W CAD W TONY (12/16/2023 2:23 PM CDT) Anatomical Region Laterality Modality breast Bilateral Mammography 12/16/2023 2:23 PM CDT Impressions 12/16/2023 3:21 PM CDT IMPRESSION: No mammographic or sonographic evidence of malignancy. RECOMMENDATION: As long as the patient's physical examination remains normal, a bilateral screening mammogram is recommended annually. In order to optimize the benefits of these screening modalities, consider alternating bilateral screening mammogram and bilateral whole breast ultrasound every 6 months (i.e. screening mammogram December 2024, whole breast ultrasound June 2025). Patient information has been entered into a reminder system with a target due date for the next mammogram. BIRADS 1 - Negative Narrative 12/16/2023 3:21 PM CDT EXAMINATION: [facility] SCREENING BILATERAL DIGITAL W CAD W TONY, ABUS BILATERAL CLINICAL INDICATION: Asymptomatic 78 years old female presenting for routine screening imaging. No current breast related complaints. COMPARISON: 09/19/2022 and priors. TECHNIQUE: Routine mammographic views of both breasts were obtained. The study has been reviewed with CAD and performed with tomosynthesis. BREAST DENSITY: The breast parenchyma is heterogenously dense, which lowers the sensitivity of mammography. BILATERAL SCREENING MAMMOGRAM: No dominant masses, suspicious calcifications or areas of architectural distortion identified. BILATERAL WHOLE BREAST ULTRASOUND: Complete breast ultrasound using 3-D automated breast ultrasound with offline 3-D rendering was obtained on both breasts. Imaging included sonographic evaluation of all 4 quadrants and subareolar region of both breasts. The tissue composition is heterogeneous background echotexture. Sonographically benign-appearing tissue is demonstrated in both breasts. No suspicious mass or area of abnormal shadowing is seen in either breast. Procedure Note Maren Holt MD - 12/16/2023 EXAMINATION: [facility] SCREENING BILATERAL DIGITAL W CAD W TONY, ABUSBILATERAL CLINICAL INDICATION: Asymptomatic 78 years old female presenting forroutine screening imaging. No current breast related complaints. COMPARISON: 09/19/2022 and priors. TECHNIQUE: Routine mammographic views of both breasts were obtained. Thestudy has been reviewed with CAD and performed with tomosynthesis. BREAST DENSITY: The breast parenchyma is heterogenously dense, whichlowers the sensitivity of mammography. BILATERAL SCREENING MAMMOGRAM: No dominant masses, suspiciouscalcifications or areas of architectural distortion identified. BILATERAL WHOLE BREAST ULTRASOUND: Complete breast ultrasound using 3-Dautomated breast ultrasound with offline 3-D rendering was obtained onboth breasts. Imaging included sonographic evaluation of all 4 quadrantsand subareolar region of both breasts. The tissue composition is heterogeneous background echotexture.Sonographically benign-appearing tissue is demonstrated in both breasts.No suspicious mass or area of abnormal shadowing is seen in eitherbreast. IMPRESSION: No mammographic or sonographic evidence of malignancy. RECOMMENDATION: As long as the patient's physical examination remainsnormal, a bilateral screening mammogram is recommended annually. In order to optimize the benefits of these screening modalities, consideralternating bilateral screening mammogram and bilateral whole breastultrasound every 6 months (i.e. screening mammogram December 2024, wholebreast ultrasound June 2025). Patient information has been entered into a reminder system with a targetdue date for the next mammogram. BIRADS 1 - Negative us Rodger Akbar Page ARCHIVAL RECORDS CLERK, LUBE TECHNICIAN IMG MAMMO ORDERABLE S Final Result * HM COLONOSCOPY (11/13/2018) us Griffin Hartmann MD PROCEDURE/MINOR SURGICAL ORDERABLES Edited Result - Final from Last 3 Months or Most Recently Relevant to Health Maintenance Insurance MEDICARE C AETNA Advance Directives * Full Code (Latest Code Status on File) Date Activated Date Inactivated Comments 03/11/2019 10:12 AM 08/03/2020 1:56 PM * Full Code Date Activated Date Inactivated Comments 03/01/2019 10:37 AM 03/02/2019 8:25 PM * Full Code Date Activated Date Inactivated Comments 11/23/2018 5:22 AM 11/25/2018 5:46 PM Care Teams Interior Design Coordinator Relationship Specialty Start Date End Date Rodger Dawson APRN, LUBE TECHNICIAN [address] [place] [address] PCP - General Advanced Practice Nurse 07/19/22 Joe Blount DO Consulting Physician Orthopaedic Surgery 12/29/19 Jorge Wallace MD [address] [place] [phone] Consulting Physician Cardiovascular Disease - Cardiology 12/29/19 Luigi Gamez OD [address] [place] [address] Optometry 12/29/19 Varun Fofana DC [address] [facility] [address] [place] [address] Chiropractic Medicine 12/29/19
--- OUTSIDE RECORDS SUMMARY | 2024-12-09 12:15 | XMS_ITS | Encounter Summary ---
Author Organization [facility] Address [address] [place] [address] Phone Care Team Providers Care Education Adviser Name Role Phone Harris Beck MD Primary Care Provider Joe Blount DO Unavailable [phone] Jorge Wallace MD Unavailable Luigi Gamez OD Unavailable [phone] Varun Fofana DC Unavailable Ragini Baires APRN, FIREPROOF DOOR MAKER Unavailable [phone] Rodger Dawson APRN, FIREPROOF DOOR MAKER Primary Care Provi mai Encounter Details Date Type Department Care Team (Late st Contact Info) Description 05/01/2021 Lab [facility] COVID19 Drive Thru Collection [address] [facility] [place] [address] Gustavo Castillo MD [address] [place] [address] Pre-op testing (Primary Dx) Social [...] on file Legal Sex Female 3:44 AM CONSTRUCTION EQUIPMENT OVERHAULER Gender Identity Not on file Sexual Orientation [...] Info) Description 02/18/2025 9:15 AM CDT [facility] [address] [place] [address] Rodger Dawson APRN, FIREPROOF DOOR MAKER [address] [place] [address] Discharge Disposition: Discharged to home or Selfcare 02/18/2025 9:30 AM CDT Appointment [facility] [address] [place] [address] Rodger Dawson APRN, FIREPROOF DOOR MAKER [address] [place] [address] Discharge Disposition: Discharged to home or Selfcare 08/02/2025 10:40 AM CONSTRUCTION EQUIPMENT OVERHAULER Office Visit [facility] - [facility] Medicine - [facility] [address] [place] [address] Rodger aDwson APRN, FIREPROOF DOOR MAKER [address] [place] [address] documented as of this encounter Results * SARS-COV-2 BY MOLECULAR (05/04/2021 12:07 PM CDT) SARSCOV2 NOT DETECTED (Referen ce Range for this test is Not Detected ) [facility] THERMOFISHER FAST DX 05/05/2021 8:49 AM CDT [facility] Comment:This test was perfor med by a RT-PCR method. Other NASAL STRUCTURE / Unknown COVID 19 Collection / Unknown 05/04/2021 12:07 PM CDT 05/04/2021 12:07 PM CDT Narrative [facility] - 05/05/2021 8:49 AM CDT Authorized Fact Sheets about this test for providers and patients are available at: https://www.fda.gov/medical-devices/bstykcobm-keagqpxwka-jktjcgg-devices/emergen -us e-authorizations us Gustavo Castillo MD MICROBIOLOGY - GENERAL ORDERAB LES Final Result Performing Organization Address City/State/[facility] Co de Phone Number [facility] [address] [place] [address], documented in this encounter Visit Diagnoses Diagnosis Pre-op testing- Primary Preoperative examination, unspecified documented in this encounter Additional Health Concerns Infection Onset Date Last Indicated Resolved Time COVID - 19 03/19/2023 03/19/2023 03/29/2023 12:1 6 AM CDT COVID - 19 05/24/2023 05/24/2023 06/03/2023 12:1 6 AM CONSTRUCTION EQUIPMENT OVERHAULER Assessment Noted Time PHQ-9 Depression Total Score: 0 02/04/20 20 10:00 AM CDT documented as of this encounter Care Teams Education Adviser Relationship Specialty Start Date End Date Harris Beck MD PCP - General 04/11/09 07/18/22 Rodger Dawson APRN, FIREPROOF DOOR MAKER [address] [place] [address] PCP - General Advanced Practice Nurse 07/19/22 Joe Blount DO Consulting Physician Orthopaedic Surgery 12/29/19 Jorge Wallace MD [address] [place] [phone] Consulting Physician Cardiovascular Disease - Cardiology 12/29/19 Luigi Gamez OD [address] [place] [address] Optometry 12/29/19 Varun Fofana DC [address] [facility] [address] [place] [address] Chiropractic Medicine 12/29/19 Ragini Baires APRN, FIREPROOF DOOR MAKER [address] [place] [address] Nurse Practitioner Advanced Practice Nurse 10/04/21 documented as of this encounter
--- OUTSIDE RECORDS SUMMARY | 2024-12-09 12:15 | XMS_ITS | Encounter Summary ---
Author Organization [facility] Address [address] [place] [address] Phone Care Team Providers Care Inside Sales Administrator Name Role Phone Harris Beck MD Primary Care Provider Joe Blount DO Unavailable Jorge Wallace MD Unavailable Luigi Gamez OD Unavailable [phone] Varun Fofana DC Unavailable Ragini Baires APRN, MAINTENANCE REPAIRER Unavailable [phone] Rodger Dawson APRN, MAINTENANCE REPAIRER Primary Care Provi mai Encounter Details Date Type Department Care Team (Late st Contact Info) Description 05/09/2021 Telephone [facility] - [place] [address] [facility] [place] [address] Joe Blount, DO [address] [place], [place] [id number] Social History Tobacco Use Types Packs/Day Years [...] on file Legal Sex Female 3:44 AM BAGGING SALVAGER Gender Identity Not on file Sexual Orientation Not on file COVID-19 Exposure Response Date Recorded In the last month, have you been in contact with someone who was confirmed or suspected to have Coronavirus / COVID-19? No / Unsure 05/09/2021 10:40 AM CDT documented as of this encounter Miscellaneous Notes * Telephone Encounter - Sun Sheth RN - 05/09/2021 2:25 PM CDT Spoke with patient. She wanted to clarify Dr. Blount's protocol for prophylactic antibiotics prior to dental procedures. Informed her he requires antibiotics for one year post op. Patient asked office to send a letter to her dentist. Letter written, and faxed. No further needs. * Telephone Encounter - Karley Rangel - 05/09/2021 11:46 AM CDT Pt called. Pt stated she has some question regarding dentist appt's and antibiotics. PH: [phone] documented in this encounter Plan of Treatment Upcoming Encounters Date Type Department Care Team (Late st Contact Info) Description 02/18/2025 9:15 AM CDT Appointment [facility] M[facility] [address] [place] [address] Rodger Dawson APRN, MAINTENANCE REPAIRER [address] [place] [address] Discharge Disposition: Discharged to home or Selfcare 02/18/2025 9:30 AM CDT Appointment [facility] M[facility]ography [address] [place] [address] Rodger Dawson APRN, MAINTENANCE REPAIRER [address] [place], [place] [address] Discharge Disposition: Discharged to home or Selfcare 08/02/2025 10:40 AM BAGGING SALVAGER Office Visit [facility] - Family Medicine - [facility] [address] [place] [address] Rodger Dawson APRN, MAINTENANCE REPAIRER [address] [place] [address] documented as of this encounter Visit Diagnoses Not on filedocumented in this encounter Additional Health Concerns Infection Onset Date Last Indicated Resolved Time COVID - 19 03/19/2023 03/19/2023 03/29/2023 12:1 6 AM CDT COVID - 19 05/24/2023 05/24/2023 06/03/2023 12:1 6 AM BAGGING SALVAGER Assessment Noted Time PHQ-9 Depression Total Score: 0 02/04/20 10:00 AM CDT documented as of this encounter Care Teams Inside Sales Administrator Relationship Specialty Start Date End Date Harris Beck MD PCP - General 04/11/09 07/18/22 Rodger Dawson APRN, MAINTENANCE REPAIRER [address] [place] [id number] PCP - General Advanced Practice Nurse 07/19/22 Joe Blount DO Consulting Physician Orthopaedic Surgery 12/29/19 Jorge Wallace MD [address] [place] [address] [place] [address] Consulting Physician Cardiovascular Disease - Cardiology 12/29/19 Luigi Gamez, DIONY [address] [place], [place] [address] Optometry 12/29/19 Varun Fofana DC [address] [facility] [address] [place] [address] Chiropractic Medicine 12/29/19 Ragini Baires APRN, MAINTENANCE REPAIRER [address] [place] [address] Nurse Practitioner Advanced Practice Nurse 10/04/21 documented as of this encounter
--- OUTSIDE RECORDS SUMMARY | 2024-12-09 12:15 | XMS_ITS | Encounter Summary ---
Author Organization [facility] Address [address] [place] [address] Phone Care Team Providers Care Financial Analyst Accountant Name Role Phone Harris Beck MD Primary Care Provider [phone] Joe Blount DO Unavailable [phone] Jorge Wallace MD Unavailable Luigi Gamez OD Unavailable [phone] Varun Fofana DC Unavailable Ragini Baires APRN, CERTIFIED REHABILITATION COUNSELOR Unavailable [phone] Rodger Dawson APRN, CERTIFIED REHABILITATION COUNSELOR Primary Care Provi mai Reason for Visit * Reason Onset Date Comments Medication Refill 01/12/2020 Encounter Details Date Type Department Care Team (Late st Contact Info) Description 01/12/2020 Refill [facility] - Family [facility] [address] [place] [address] Harris Beck MD [address] [place] [address] Medication Refill Social History Tobacco Use Types Packs/Day Years [...] on file 09/2018 PHQ-2 Answer Date Recorded PHQ-2 Score 0 03/03/2019 Sexually Active Control Partners Comments Never Comments No Sex and Gender Information Value Date Recorded Sex Assigned at Not on file Legal Sex Female 3:44 AM WATER PLANT PUMP OPERATOR SUPERVISOR Gender Identity Not on file Sexual Orientation Not on file COVID-19 Exposure Response Date Recorded In the last month, have you been in contact with someone who was confirmed or suspected to have Coronavirus / COVID-19? No / Unsure 01/13/2020 12:24 PM CDT documented as of this encounter Miscellaneous Notes * Telephone Encounter - Frannie Palumbo - 01/12/2020 4:40 PM CDT Error documented in this encounter Plan of Treatment Upcoming Encounters Date Type Department Care Team (Late st Contact Info) Description 02/18/2025 9:15 AM CDT [facility] [address] [place] [address] Rodger Dawson APRN, CERTIFIED REHABILITATION COUNSELOR [address] [place] [address] Discharge Disposition: Discharged to home or Selfcare 02/18/2025 9:30 AM CDT [facility] [address] [place] [address] Rodger Dawson APRN, CERTIFIED REHABILITATION COUNSELOR [address] [place] [address] Discharge Disposition: Discharged to home or Selfcare 08/02/2025 10:40 AM WATER PLANT PUMP OPERATOR SUPERVISOR Office Visit [facility] - Family Medicine - [facility] [address] [place] [address] Rodger Dawson APRN, CERTIFIED REHABILITATION COUNSELOR [address] [place] [address] documented as of this encounter Visit Diagnoses Not on filedocumented in this encounter Additional Health Concerns Infection Onset Date Last Indicated Resolved Time COVID - 19 03/19/2023 03/19/2023 03/29/2023 12:1 6 AM CDT COVID - 19 05/24/2023 05/24/2023 06/03/2023 12:1 6 AM WATER PLANT PUMP OPERATOR SUPERVISOR Assessment Noted Time PHQ-9 Depression Total Score: 0 12/29/19 11:00 AM CDT documented as of this encounter Care Teams Financial Analyst Accountant Relationship Specialty Start Date End Date Harris Beck MD PCP - General 04/11/09 07/18/22 Rodger Dawson APRN, CERTIFIED REHABILITATION COUNSELOR [address] [place] [address] PCP - General Advanced Practice Nurse 07/19/22 Joe Blount DO Consulting Physician Orthopaedic Surgery 12/29/19 Jorge Wallace MD [address] [place] [phone] Consulting Physician Cardiovascular Disease - Cardiology 12/29/19 Luigi Gamez OD [address] [place] [address] Optometry 12/29/19 Varun Fofana DC [address] [facility] [address] [place] [address] Chiropractic Medicine 12/29/19 Ragini Baires APRN, CERTIFIED REHABILITATION COUNSELOR [address] [place] [address] Nurse Practitioner Advanced Practice Nurse 10/04/21 documented as of this encounter
[2024-12-09 12:30] LABS: Prothrombin Time 13.3 Seconds (11.1-14.7)
--- OUTSIDE RECORDS SUMMARY | 2024-12-09 12:46 | XMS_ITS | Encounter Summary ---
Author Organization [facility] Address [address] [place] [address] Phone Care Team Providers Care Position Classifier Name Role Phone Harris Beck MD Primary Care Provider Joe Blount DO Unavailable Jorge Wallace MD Unavailable Luigi Gamez OD Unavailable [phone] Varun Fofana DC Unavailable Ragini Baires APRN, RETORT OR CONDENSER PRESS OPERATOR Unavailable [phone] Rodger Dawson APRN, RETORT OR CONDENSER PRESS OPERATOR Primary Care Provi mai Reason for Visit * Reason Onset Date Comments Medication Refill 01/12/2020 Encounter Details Date Type Department Care Team (Late st Contact Info) Description 01/12/2020 Refill [facility] - [facility] [address] [place] [address] Harris Beck MD [address] [place] [address] Medication Refill Social History Tobacco Use Types [...] on file Legal Sex Female 3:44 AM STOCK SUPERVISOR Gender Identity Not on file Sexual [...] Info) Description 02/18/2025 9:15 AM CDT [facility] [address] [place] [address] Rodger Dawson APRN, RETORT OR CONDENSER PRESS OPERATOR [address] [place] [address] Discharge Disposition: Discharged to home or Selfcare 02/18/2025 9:30 AM CDT [facility] [address] [place] [address] Rodger Dawson APRN, RETORT OR CONDENSER PRESS OPERATOR [address] [place] [address] Discharge Disposition: Discharged to home or Selfcare 08/02/2025 10:40 AM STOCK SUPERVISOR Office Visit [facility] - [facility] - [facility] [address] [place] [address] Rodger Dawson APRN, RETORT OR CONDENSER PRESS OPERATOR [address] [place] [address] documented as of this encounter Visit Diagnoses Not on filedocumented in this encounter Additional Health Concerns Infection Onset Date Last Indicated Resolved Time COVID - 19 03/19/2023 03/19/2023 03/29/2023 12:1 6 AM CDT COVID - 19 05/24/2023 05/24/2023 06/03/2023 12:1 6 AM STOCK SUPERVISOR Assessment Noted Time PHQ-9 Depression Total Score: 0 12/29/19 11:00 AM CDT documented as of this encounter Care Teams Position Classifier Relationship Specialty Start Date End Date Harris Beck MD PCP - General 04/11/09 07/18/22 Rodger Dawson APRN, RETORT OR CONDENSER PRESS OPERATOR [address] [place] [address] PCP - General Advanced Practice Nurse 07/19/22 Joe Blount DO Consulting Physician Orthopaedic Surgery 12/29/19 Jorge Wallace MD [address] [place] [phone] Consulting Physician Cardiovascular Disease - Cardiology 12/29/19 Luigi Gamez OD [address] [place] [address] Optometry 12/29/19 Varun Fofana DC [address] [facility] [address] [place] [address] Chiropractic Medicine 12/29/19 Ragini Baires APRN, RETORT OR CONDENSER PRESS OPERATOR [address] [place] [address] Nurse Practitioner Advanced Practice Nurse 10/04/21 documented as of this encounter
--- OUTSIDE RECORDS SUMMARY | 2024-12-09 12:46 | XMS_ITS | Clinical Summary ---
Author Organization [facility] Address [address] [place] [address] Phone Care Team Providers Care Monument Installer Name Role Phone Harris Beck MD Primary [...] on file Legal Sex Female 7:59 AM POMPOM MAKER Gender Identity Not on file Sexual Orientation [...] CDT) CALCIUM 8.8 8.5 - 10.5 mg/dl [facility] GLUCOSE 113(H) 60 - 99 [...] 21.0 - 31.0 mmol/L [facility] Comment:[facility], [address] [place] [address] 03/16/2009 7:08 AM CDT 03/16/2009 10:14 AM CDT Harris Beck MD HEM/CHEM/IMMUN-BLOOD Final Re sult Performing Organization Address City/State/[facility] Co de Phone Number [facility] [address] [place] [address] from Last 3 Months or Most Recently Relevant to Health Maintenance Insurance [facility] [place] [address] [employer] [place] [address] Care Teams Monument Installer Relationship Specialty Start Date End Date Harris Beck MD PCP - General Family Medicine 12/26/21
--- OUTSIDE RECORDS SUMMARY | 2024-12-09 12:46 | XMS_ITS | Encounter Summary ---
Author Organization [facility] Address [address] [place] [address] Phone Care Team Providers Care Restaurant Host/Hostess Name Role Phone Harris Beck MD Primary Care Provider Joe Blount DO Unavailable Jorge Wallace MD Unavailable Luigi Gamez OD Unavailable [phone] Varun Fofana DC Unavailable Ragini Baires APRN, DEBUBBLIZER Unavailable [phone] Rodger Dawson APRN, DEBUBBLIZER Primary Care Provi mai Encounter Details Date Type Department Care Team (Late st Contact Info) Description 05/09/2021 Telephone [facility] - [place] [address] [place] [address] Joe Blount, DO [address] [place], [place] [id number] Social History Tobacco Use Types Packs/Day Years [...] on file Legal Sex Female 3:44 AM PHYSICAL AERODYNAMICIST Gender Identity Not on file Sexual Orientation [...] question regarding dentist appt's and antibiotics. PH: [phone] documented in this encounter Plan of Treatment Upcoming Encounters Date Type Department Care Team (Late st Contact Info) Description 02/18/2025 9:15 AM CDT Appointment [facility] [address] [place] [address] Rodger Dawson APRN, DEBUBBLIZER [address] [place] [address] Discharge Disposition: Discharged to home or Selfcare 02/18/2025 9:30 AM CDT Appointment [facility] [address] [place] [address] Rodger Dawson APRN, DEBUBBLIZER [address] [place], [place] [phone] Discharge Disposition: Discharged to home or Selfcare 08/02/2025 10:40 AM PHYSICAL AERODYNAMICIST Office Visit [facility] - Family [facility] - [facility] [address] [place] [address] Rodger Dawson APRN, DEBUBBLIZER [address] [place] [address] documented as of this encounter Visit Diagnoses Not on filedocumented in this encounter Additional Health Concerns Infection Onset Date Last Indicated Resolved Time COVID - 19 03/19/2023 03/19/2023 03/29/2023 12:1 6 AM CDT COVID - 19 05/24/2023 05/24/2023 06/03/2023 12:1 6 AM PHYSICAL AERODYNAMICIST Assessment Noted Time PHQ-9 Depression Total Score: 0 02/04/20 10:00 AM CDT documented as of this encounter Care Teams Restaurant Host/Hostess Relationship Specialty Start Date End Date Harris Beck MD PCP - General 04/11/09 07/18/22 Rodger Dawson APRN, DEBUBBLIZER [address] [place] [id number] PCP - General Advanced Practice Nurse 07/19/22 Joe Blount DO Consulting Physician Orthopaedic Surgery 12/29/19 Jorge Wallace MD [address] [place] [address] [place] [address] Consulting Physician Cardiovascular Disease - Cardiology 12/29/19 Luigi Gamez, DIONY [address] [place], [place] [address] Optometry 12/29/19 Varun Fofana DC [address] [facility] [address] [place] [address] Chiropractic Medicine 12/29/19 Ragini Baires APRN, DEBUBBLIZER [address] [place] [address] Nurse Practitioner Advanced Practice Nurse 10/04/21 documented as of this encounter
--- OUTSIDE RECORDS SUMMARY | 2024-12-09 12:47 | XMS_ITS | Encounter Summary ---
Author Organization [facility] Address [address] [facility] [place] [address] Phone Care Team Providers Care President Sales And Marketing Name Role Phone Joe Blount DO Unavailable Jorge Wallace MD Unavailable Luigi Gamez OD Unavailable [phone] Varun Fofana DC Unavailable Rodger Dawson APRN, GRAIN MERCHANDISING MANAGER Primary Care Provi mai Reason for Visit * Reason Onset Date Comments Chest Pain 12/09/2024 Encounter Details Date Type Department Care Team (Late st Contact Info) Description 12/09/2024 Nurse Triage [facility] [address] [place] [address] Rodger Dawson APRN, GRAIN MERCHANDISING MANAGER [address] [place] [address] Chest Pain Social History Tobacco Use Types Packs/Day Years Used Date Smoking Tobacco: Never Smokeless Tobacco: Never Alcohol Use Standard Drinks/Week Comments Yes 0 (1 standard drink = 0.6 oz pur e alcohol) one glass red wine at bedtime [facility] Utilities Answer Date Recorded In the past [...] How often do you attend yarsanism or quaker serv ices? Patient declined 07/25/2023 Do you [...] Total Score - Questions 1-9 0 07/08 [facility] - Occupational Stress Questionnaire Answer Date [...] place to sleep or slept in a senior care (including now)? Patient declined 07/25/2023 Education Answer Date Recorded What is the highest level of school you have completed or the highest degree you have received? Some college, no degree 03/21/2021 Sexually Active Control Partners Comments Never Comments No Sex and Gender Information Value Date Recorded Sex Assigned at Not on file Legal Sex Female 3:44 AM HIGH SCHOOL COACH Gender Identity Not on file Sexual Orientation Not on file documented as of this encounter Miscellaneous Notes * Telephone Encounter - Brianna Byrne RN - 12/09/2024 9:43 AM CDT SITUATION: Patient calling to report symptoms BACKGROUND: Patient contacting PCP office. Continuous chest pain past 5 minutes or greater Patient driving in [place] with daughter at this time ASSESSMENT: Symptom Description / Location: Chest pain just above right breast past 5 minutes; strong, heavy ache Radiating up toward shoulder and into jaw RECOMMENDATION: Call 911 now Patient is agreeable to recommendation above. Patient advised to assembler for puller over hand now; states she will assembler for puller over hand and contact 911 per self Patient advised [...] Chest Pain - Adult Outcome: Transfer to welding machine operator plasma arc queue Reason: Caller denied all higher acuity questions The caller accepted this outcome. Caller Denied: * Trouble breathing * Passed out * Severe pain now * Heaviness on chest documented in this encounter Plan of Treatment Upcoming Encounters Date Type Department Care Team (Late st Contact Info) Description 02/18/2025 9:15 AM CDT Appointment [facility] [address] [place] [address] Rodger Dawson APRN, GRAIN MERCHANDISING MANAGER [address] [place], [place] [address] Discharge Disposition: Discharged to home or Selfcare 02/18/2025 9:30 AM CDT [facility]ointment [facility] [address] [place] [address] Rodger Dawson APRN, GRAIN MERCHANDISING MANAGER [address] [place] [address] Discharge Disposition: Discharged to home or Selfcare 08/02/2025 10:40 AM HIGH SCHOOL COACH Office Visit [facility] [address] [place] [address] Rodger Dawson APRN, GRAIN MERCHANDISING MANAGER [address] [place] [address] documented as of this encounter Visit Diagnoses Not on filedocumented in this encounter Additional Health Concerns Assessment Noted Time PHQ-9 Depression Total Score: 0 07/30/19 25 9:46 AM HIGH SCHOOL COACH documented as of this encounter Care Teams President Sales And Marketing Relationship Specialty Start Date End Date Rodger Dawson APRN, GRAIN MERCHANDISING MANAGER [address] [place], [place] [address] PCP - General Advanced Practice Nurse 07/19/22 Joe Blount DO Consulting Physician Orthopaedic Surgery 12/29/19 Jorge Wallace MD [address] [place] [address] Consulting Physician Cardiovascular Disease - Cardiology 12/29/19 Luigi Gamez OD [address] [place] [place], [place] [address] Optometry 12/29/19 Varun Fofana DC [address] [place] [address] Chiropractic Medicine 12/29/19 documented as of this encounter
--- OUTSIDE RECORDS SUMMARY | 2024-12-09 12:47 | XMS_ITS | Clinical Summary ---
Author Organization [facility] Address [address] [place] [address] Phone Care Team Providers Care Commission Sales Associate Name Role Phone Joe Blount DO Unavailable Jorge Wallace MD Unavailable Luigi Gamez OD Unavailable [phone] Varun Fofana DC Unavailable Rodger Dawson PROCESS TECH, PROCESS TECH Primary Care Provi mai Allergies Active Allergy [...] Department Care Team Description 12/09/2024 [facility] [address] [place] [address] Rodger Dawson APRN, CNP Chest Pain 11/05/2024 7:40 AM CDT Office Visit [facility] - [facility] [address] [place] [address] Rodger Dawson APRN, CNP Thrombophlebitis of superficial veins of both lower extremities (Primary Dx) Discharge Disposition: Discharged to home or Selfcare 11/05/2024 Travel 10/22/2024 4:24 PM CDT - 10/22/2024 5:44 PM CDT Emergency [facility] [address] [place] [phone] Mbuvi, Katherin Hanna, PAC Thrombophlebitis Discharge Disposition: Discharged to home or Selfcare 10/22/2024 Travel 10/22/2024 Nurse Triage [facility] [address] [address] Rodger Dawson APRN, LEANA Advice Only; Knee Pain; Leg Pain 10/06/2024 2:20 PM CDT Office Visit [facility] [address] [place] [address] Rodger Dawson APRN, LEANA Nonrheumatic aortic valve stenosis (Primary Dx); Skin lesions; Sebaceous cyst; Age-related osteoporosis without current pathological fracture; Primary osteoarthritis of right shoulder; PAD (peripheral artery disease) ([facility]) Discharge Disposition: Discharged to home or Selfcare 10/06/2024 Travel 10/06/2024 Nurse Triage [address] [address] Rodger Dawson APRN, LEANA Rash 10/01/2024 10:00 AM CDT - 10/01/2024 11:59 PM CDT Hospital Encounter [facility] [address] [place] [address] Rodger Dawson APRN, LEANA Discharge Disposition: Discharged to home or Selfcare 10/01/2024 Results Follow-Up [facility] [address] [place] [address] Rodger Dawson APRN, LEANA NIALL BONE DENSITOMETRY AXIAL SKELETON 10/01/2024 Travel 09/15/2024 Results Follow-Up [facility] [address] [place] [address] Rodger Dawson APRN, LEANA ADULT TRANS THORACIC ECHO 2D COMPLETE 09/14/2024 1:00 PM CDT - 09/14/2024 11:59 PM CDT Hospital Encounter [facility] [address] [place], [place] [address] Rodger Dawson APRN, LEANA Discharge Disposition: Discharged to home or Selfcare 09/14/2024 Travel 09/14/2024 Telephone [facility] - Family Medicine - [facility] [address] [place] [address] Rodger Dawson APRN, LEANA Follow-up from Last 3 Months Immunizations Immunization Administration Dates Next Due Covid-19 Vaccine, Vector-nr, Rs-ad26, Pf, 0.5 Ml ([employer]) 07/07/2021 Hepatitis A Vaccine 08/28/1999 Hepatitis B [...] alcohol) one glass red wine at bedtime [facility] Utilities Answer Date Recorded In the [...] declined 07/25/2023 How often do you attend hoahaoism or synagogue serv ices? Patient declined 07/25/2023 Do you belong to any clubs o r organizations such as hoahaoism groups, unions, fraternal or athletic groups, or [...] Total Score - Questions 1-9 0 07/08 [facility] [place] [facility] Occupat ional Health - Occupational Stress [...] place to sleep or slept in a correction (including now)? Patient declined 07/25/2023 Education Answer Date Recorded What is the highest level of school you have completed or the highest degree you have received? Some college, no degree 03/21/2021 Sexually Active Control Partners Comments Never Comments No Sex and Gender Information Value Date Recorded Sex Assigned at Not on file Legal Sex Female 3:44 AM WATCH PARTS GRINDER Gender Identity Not on file Sexual Orientation [...] Info) Description 02/18/2025 9:15 AM CDT [facility] [address] [place] [address] Rodger Dawson APRN, PROCESS TECH [address] [place], [place] [address] Discharge Disposition: Discharged to home or Selfcare 02/18/2025 9:30 AM CDT [facility] [address] [place] [address] Rodger Dawson APRN, PROCESS TECH [address] [place] [address] Discharge Disposition: Discharged to home or Selfcare 08/02/2025 10:40 AM WATCH PARTS GRINDER Office Visit [facility] - [facility] [address] [place] [address] Rodger Dawson APRN, PROCESS TECH [address] [place] [address] Health Maintenance Due Date Last Done Comments [...] this topic Medical Devices Implanted Type Area Nurse Anesthetist Device Identifier Shelf Expiration Date Model / Serial / Lot Cement Bone Simplex Gentamicin High Viscosity 40gm - [id number] Implanted:Qty: 2 on 11/23/2018 by [facility] Blount DO at [facility] IMPLANT Left: Knee [employer] 06/05/2020 6195-1-001 / / [id number] Component Patellar 8mm 29mm Symmetric Triathlon X3 Knee - [id number] Implanted:Qty: 1 on 11/23/2018 by Joe Blount DO at [facility] IMPLANT Left: Knee [employer] 07/07/2023 5550-G-298 / / [id number] Baseplate Tib Triathlon 3 Knee Total Stab - [id number] Implanted:Qty: 1 on 11/23/2018 by Joe Blount DO at [facility] IMPLANT Left: Knee [employer] 09/02/2023 5521-B-300 / / [id number] Component Fem 4 Knee Left Crurtn Cmnt Triathlon - [id number] Implanted:Qty: 1 on 11/23/2018 by Joe Blount DO at [facility] IMPLANT Left: Knee [employer] 05/06/2023 5510-F-401 / / [id number] Insert Tib 3 13mm Knee X3 Condylar Stabilized Triathlon - [id number] Implanted:Qty: 1 on 11/23/2018 by Joe Blount DO at [facility] IMPLANT Left: Knee [employer] 08/05/2023 5531-G-313 / / [id number] Cement Bone Simplex Gentamicin High Viscosity 40gm - [id number] Implanted:Qty: 1 on 03/01/2019 by Joe Blount DO at [facility] IMPLANT Right: Knee [employer] 08/06/2020 6195-1-001 / / [id number] Baseplate Tib Triathlon 3 Knee Cmnt Primary - [id number] Implanted:Qty: 1 on 03/01/2019 by Joe Blount DO at [facility] IMPLANT Right: Knee [employer] 09/06/2023 5520-B-300 / / [id number] Component Fem 4 Knee Right Crurtn Cmnt Triathlon - [id number] Implanted:Qty: 1 on 03/01/2019 by Joe Blount DO at [facility] IMPLANT Right: Knee [employer] 11/14/2023 5510-F-402 / / [id number] Component Patellar 8mm 29mm Symmetric Triathlon X3 Knee - [id number] Implanted:Qty: 1 on 03/01/2019 by Joe Blount DO at [facility] IMPLANT Right: Knee [employer] 12/09/2022 5550-G-298 / / [id number] Insert Tib 3 13mm Knee X3 Condylar Stabilized Triathlon - [id number] Implanted:Qty: 1 on 03/01/2019 by Joe Blount DO at [facility] IMPLANT Right: Knee [employer] 12/02/2023 5531-G-313 / / [id number] Cement Bone Simplex Gentamicin High Viscosity 40gm - [id number] Implanted:Qty: 1 on 03/01/2019 by Joe Blount DO at [facility] IMPLANT Right: Knee [employer] 09/03/2020 6195-1-001 / / [id number] Explanted Type Area Nurse Anesthetist Device Identifier Shelf Expiration Date Model / Serial / Lot Pin Bone [id number] - [id number] Explanted:Qty: 1 on 11/23/2018 by Joe Blount DO at [facility] IMPLANT Left: Knee [employer] 06/19/2023 [id number] / / [id number] Pin Bone [id number] - [id number] Explanted:Qty: 1 on 11/23/2018 by Joe Blount DO at [facility] IMPLANT Left: Knee [employer] 07/13/2023 [id number] / / [id number] Kit Checkpoint Femoral/Tibial Sterile - [id number] Explanted:Qty: 1 on 11/23/2018 at [facility] IMPLANT Left: Knee [employer] 05/27/2023 [id number] / / [id number] Pin Bone [id number] - [id number] Explanted:Qty: 1 on 03/01/2019 at [facility] IMPLANT Right: Knee [employer] [id number] / / UNKNOWN Pin Bone [id number] - [id number] Explanted:Qty: 1 on 03/01/2019 at [facility] IMPLANT Right: Knee [employer] [id number] / / UNKNOWN Procedures Procedure Name Priority Date/Time Associated Diagnosis Comments US BILATERAL DUPLEX LOWER EXTREMITY VEINS Stat with Interpretation 10/22/2024 5:25 PM CDT [facility] BONE DENSITOMETRY AXIAL SKELETON Routine 10/01/2024 10:22 AM CDT Asymptomatic postmenopausal status Encounter for screening for osteoporosis ADULT TRANS THORACIC ECHO 2D COMPLETE Routine 09/14/2024 1:34 PM CDT Nonrheumatic aortic valve stenosis [facility] SCREENING BILATERAL DIGITAL W CAD W TONY [...] CDT DICTATING PHYSICIAN: Man Galvez M.D. - [facility] EXAM: Bilateral lower [...] 10/23/2024 DICTATING PHYSICIAN: Man Galvez M.D. - [facility] EXAM: Bilateral lower extremity [...] Preliminary medical imaging interpretation was provided by [facility]. Don Bose APRN, PROCESS TECH [facility] US ORDERABLES Val l Result * [facility] BONE DENSITOMETRY AXIAL SKELETON (10/01/2024 10:22 AM CDT) Anatomical Region Laterality Modality BODY N/A Other 10/01/2024 10:2 2 AM CDT Impressions 10/01/2024 12:26 PM CDT IMPRESSION: 1. Osteoporosis. 2. A follow-up exam in 1 to 2 years can be used to assess any change. Narrative 10/01/2024 12:26 PM CDT DICTATING PHYSICIAN: Rosalina Truong M.D. EXAM: [facility] BONE DENSITOMETRY AXIAL SKELETON. DATE: 10/01/2024 10:22 [...] spine (L1-L4) for this exam is 1.048 g/kt3kabn a T-score of 0, consistent with a [...] name LEE Bedoya.O.B. 1945 Patient ID (UPI) [id number] Indications: Aortic stenosis. Study Date09/14/2024 Technical quality: Adequate Type of Study: TTE procedure: M-Mode, Doppler , Color Doppler, Adult Trans Thoracic Echo 2D Complete, Myocardial Strain. Priority:RoutineHR: 67 bpmBP: 120/88 mmHg History of Disease +---------+ + + !Diagnosis!Date !Comments ! +---------+ + + !Other !07/08/2019!decreased L PEARL PELLER pulse, pre op hammer toe ! ! [...] global longitudinal strain (GLS) - 17.5%, utilizing [employer]k [employer] software. Grade I diastolic dysfunction; Normal left [...] lbs. BMI (BSA) 40.05 kg/m^2 (1.99 m^2) Oral Pathologist Uriel Son Interpreting Erlinda Campuzano Referring Rodger Dawson Physician DO Physician Procedure Note Justen Coffey DO - 09/14/2024 Transthoracic Echocardiography Report (TTE) Patient name LEE Mary DEMETRA Fermin 1945 Patient ID (UPI) [id number] Indications: Aortic stenosis. Study Date09/14/2024 Technical quality: Adequate Type of Study: TTE procedure: M-Mode, Doppler , Color Doppler, Adult Trans Thoracic Echo 2D Complete, Myocardial Strain. Priority:RoutineHR: 67 bpmBP: 120/88 mmHg History of Disease +---------+ + + !Diagnosis!Date !Comments ! +---------+ + + !Other !07/08/2019!decreased L PEARL PELLER pulse, pre op hammer toe ! ! [...] global longitudinal strain (GLS) - 17.5%, utilizing [employer] software. Grade I diastolic dysfunction; Normal left [...] lbs. BMI (BSA) 40.05 kg/m^2 (1.99 m^2) Oral Pathologist Uriel Son Interpreting Erlinda Campuzano Referring Rodger Dawson Physician DO Physician Rodger Dawson PROCESS TECH, PROCESS TECH IMG ECHO ORDERABLES Edited Result - Final [...] Negative Narrative 12/16/2023 3:21 PM CDT EXAMINATION: [facility] SCREENING BILATERAL DIGITAL W CAD W TONY, [...] Note Maren Holt MD - 12/16/2023 EXAMINATION: [facility] SCREENING BILATERAL DIGITAL W CAD W TONY, [...] 1 - Negative us Rodger Akbar Page PROCESS TECH, PROCESS TECH IMG MAMMO ORDERABLE S Final Result * [...] 5:22 AM 11/25/2018 5:46 PM Care Teams Commission Sales Associate Relationship Specialty Start Date End Date Rodger Dawson APRN, PROCESS TECH [address] [place] [address] PCP - General Advanced Practice Nurse 07/19/22 Joe Blount DO Consulting Physician Orthopaedic Surgery 12/29/19 Jorge Wallace MD [address] [place] [phone] Consulting Physician Cardiovascular Disease - Cardiology 12/29/19 Luigi Gamez OD [address] [place] [address] Optometry 12/29/19 Varun Fofana DC [address] [facility] [address] [place] [address] Chiropractic Medicine 12/29/19
--- OUTSIDE RECORDS SUMMARY | 2024-12-09 12:47 | XMS_ITS | Encounter Summary ---
Author Organization [facility] Address [address] [place] [address] Phone Care Team Providers Care Confectionery Laboratory Manager Name Role Phone Harris Beck MD Primary Care Provider Joe Blount DO Unavailable Jorge Wallace MD Unavailable Luigi Gamez OD Unavailable Varun Fofana DC Unavailable Ragini Baires APRN, DATA CENTER OPERATOR Unavailable [phone] Rodger Dawson APRN, DATA CENTER OPERATOR Primary Care Provi mai Encounter Details Date Type Department Care Team (Late st Contact Info) Description 05/01/2021 Lab [facility] COVID19 Drive Thru Collection [address] [facility] [place] [address] Gustavo Castillo MD [address] [place] [address] Pre-op testing (Primary Dx) Social [...] on file Legal Sex Female 3:44 AM BOILER WELDER Gender Identity Not on file Sexual Orientation [...] Info) Description 02/18/2025 9:15 AM CDT [facility] [address] [place] [address] Rodger Dawson APRN, DATA CENTER OPERATOR [address] [place] [address] Discharge Disposition: Discharged to home or Selfcare 02/18/2025 9:30 AM CDT Appointment [facility] Mammography [address] [place] [address] Rodger Dawson APRN, DATA CENTER OPERATOR [address] [place] [address] Discharge Disposition: Discharged to home or Selfcare 08/02/2025 10:40 AM BOILER WELDER Office Visit [facility] - Family Medicine - [facility] [address] [place] [address] Rodger Dawson APRN, DATA CENTER OPERATOR [address] [place] [address] documented as of this encounter Results * SARS-COV-2 BY MOLECULAR (05/04/2021 12:07 PM CDT) SARSCOV2 NOT DETECTED (Referen ce Range for this test is Not Detected ) [facility] FAST DX 05/05/2021 8:49 AM CDT [facility] Comment:This test was perfor med by a RT-PCR method. Other NASAL STRUCTURE / Unknown COVID 19 Collection / Unknown 05/04/2021 12:07 PM CDT 05/04/2021 12:07 PM CDT Narrative [facility] - 05/05/2021 8:49 AM CDT Authorized Fact Sheets about this test for providers and patients are available at: https://www.fda.gov/medical-devices/lbeuzmloc-qgaeodgxfj-szovmyk-devices/emergen -us e-authorizations us Gustavo Castillo MD MICROBIOLOGY - GENERAL ORDERAB LES Final Result Performing Organization Address City/State/[place] Co de Phone Number [facility] [address] [place] [address], documented in this encounter Visit Diagnoses Diagnosis Pre-op testing- Primary Preoperative examination, unspecified documented in this encounter Additional Health Concerns Infection Onset Date Last Indicated Resolved Time COVID - 19 03/19/2023 03/19/2023 03/29/2023 12:1 6 AM CDT COVID - 19 05/24/2023 05/24/2023 06/03/2023 12:1 6 AM BOILER WELDER Assessment Noted Time PHQ-9 Depression Total Score: 0 02/04/20 20 10:00 AM CDT documented as of this encounter Care Teams Confectionery Laboratory Manager Relationship Specialty Start Date End Date Harris Beck MD PCP - General 04/11/09 07/18/22 Rodger Dawson APRN, DATA CENTER OPERATOR [address] [place] [address] PCP - General Advanced Practice Nurse 07/19/22 Joe Blount DO Consulting Physician Orthopaedic Surgery 12/29/19 Jorge Wallace MD [address] [place] [phone] Consulting Physician Cardiovascular Disease - Cardiology 12/29/19 Luigi Gamez OD [address] [place] [address] Optometry 12/29/19 Varun Fofana DC [address] [facility] [address] [place] [address] Chiropractic Medicine 12/29/19 Ragini Baires APRN, DATA CENTER OPERATOR [address] [place] [id number] Nurse Practitioner Advanced Practice Nurse 10/04/21 documented as of this encounter
--- OUTSIDE RECORDS SUMMARY | 2024-12-09 12:47 | XMS_ITS | Encounter Summary ---
Author Organization [facility] Address [address] [place] [address] Phone Care Team Providers Care Dial Brusher Name Role Phone Harris Beck MD Primary Care Provider Joe Blount DO Unavailable Jorge Wallace MD Unavailable Luigi Gamez OD Unavailable [phone] Varun Fofana DC Unavailable Ragini Baires APRN, DEPUTY SHERIFF BUILDING GUARD Unavailable [phone] Rodger Dawson APRN, DEPUTY SHERIFF BUILDING GUARD Primary Care Provi mai Encounter Details Date Type Department Care Team (Late st Contact Info) Description 04/17/2021 Lab [facility] COVID19 Drive Thru Collection [address] [facility] [place] [address] Gustavo Castillo MD [address] [place] [address] Pre-op testing (Primary Dx) Social [...] on file Legal Sex Female 3:44 AM CLAIM EXAMINER Gender Identity Not on file Sexual Orientation [...] Info) Description 02/18/2025 9:15 AM CDT [facility] [address] [place] [address] Rodger Dawson APRN, DEPUTY SHERIFF BUILDING GUARD [address] [place] [address] Discharge Disposition: Discharged to home or Selfcare 02/18/2025 9:30 AM CDT Appointment [facility] Mammography [address] [place] [address] Rodger Dawson APRN, DEPUTY SHERIFF BUILDING GUARD [address] [place] [address] Discharge Disposition: Discharged to home or Selfcare 08/02/2025 10:40 AM CLAIM EXAMINER Office Visit [facility] - [facility] Medicine - [facility] [address] [place] [address] Rodger Dawson APRN, DEPUTY SHERIFF BUILDING GUARD [address] [place] [address] documented as of this encounter Results * SARS-COV-2 BY MOLECULAR (04/20/2021 1:26 PM CDT) SARSCOV2 NOT DETECTED (Referen ce Range for this test is Not Detected ) [facility] FAST DX 04/21/2021 10:48 AM CDT [facility] Comment:This test was perfor med by a RT-PCR method. Other NASAL STRUCTURE / Unknown COVID 19 Collection / Unknown 04/20/2021 1:26 PM CDT 04/20/2021 1:26 PM CDT Narrative [facility] - 04/21/2021 10:48 AM CDT Authorized Fact Sheets about this test for providers and patients are available at: https://www.fda.gov/medical-devices/gvylxpzwd-bbbnmaghiq-jtueemx-devices/emergen -us e-authorizations us Gustavo Castillo MD MICROBIOLOGY - GENERAL ORDERAB LES Final Result Performing Organization Address City/State/[facility] Co de Phone Number [facility] [address] [place] [address], documented in this encounter Visit Diagnoses Diagnosis Pre-op testing- Primary Preoperative examination, unspecified documented in this encounter Additional Health Concerns Infection Onset Date Last Indicated Resolved Time COVID - 19 03/19/2023 03/19/2023 03/29/2023 12:1 6 AM CDT COVID - 19 05/24/2023 05/24/2023 06/03/2023 12:1 6 AM CLAIM EXAMINER Assessment Noted Time PHQ-9 Depression Total Score: 0 02/04/20 20 10:00 AM CDT documented as of this encounter Care Teams Dial Brusher Relationship Specialty Start Date End Date Harris Beck MD PCP - General 04/11/09 07/18/22 Rodger Dawson APRN, DEPUTY SHERIFF BUILDING GUARD [address] [place] [address] PCP - General Advanced Practice Nurse 07/19/22 Joe Blount DO Consulting Physician Orthopaedic Surgery 12/29/19 Jorge Wallace MD [address] [place] [phone] Consulting Physician Cardiovascular Disease - Cardiology 12/29/19 Luigi Gamez OD [address] [place] [address] Optometry 12/29/19 Varun Fofana DC [address] [facility] [address] [place] [address] Chiropractic Medicine 12/29/19 Ragini Baires APRN, DEPUTY SHERIFF BUILDING GUARD [address] [place] [address] Nurse Practitioner Advanced Practice Nurse 10/04/21 documented as of this encounter
--- OUTSIDE RECORDS SUMMARY | 2024-12-09 12:47 | XMS_ITS | Encounter Summary ---
Author Organization [facility] Address [address] [place] [address] Phone Care Team Providers Care Bearing Press Machine Operator Name Role Phone Harris Beck MD Primary Care Provider Joe Blount DO Unavailable Jorge Wallace MD Unavailable Luigi Gamez OD Unavailable [phone] Varun Fofana DC Unavailable Ragini Baires APRN, SCHOOL BUS DISPATCHER Unavailable [phone] Rodger Dawson APRN, SCHOOL BUS DISPATCHER Primary Care Provi mai Encounter Details Date Type Department Care Team (Late st Contact Info) Description 11/21/2020 Telephone [facility] - [facility]opedics - [place] [address] [place] [address] Joe Blount, DO [address] [place], [place] [address] Social History Tobacco Use Types Packs/Day Years [...] on file Legal Sex Female 3:44 AM BUTTON CUTTING MACHINE OPERATOR Gender Identity Not on file Sexual Orientation Not on file documented as of this encounter Plan of Treatment Upcoming Encounters Date Type Department Care Team (Late st Contact Info) Description 02/18/2025 9:15 AM CDT [facility] [address] [place] [address] Rodger Dawson APRN, SCHOOL BUS DISPATCHER [address] [place] [address] Discharge Disposition: Discharged to home or Selfcare 02/18/2025 9:30 AM CDT Appointment [facility] Mammography [address] [place] [address] Rodger Dawson APRN, SCHOOL BUS DISPATCHER [address] [place] [address] Discharge Disposition: Discharged to home or Selfcare 08/02/2025 10:40 AM BUTTON CUTTING MACHINE OPERATOR Office Visit [facility] - Family Medicine - [facility] [address] [place] [address] Rodger Dawson APRN, SCHOOL BUS DISPATCHER [address] [place] [address] documented as of this encounter Visit Diagnoses Not on filedocumented in this encounter Additional Health Concerns Infection Onset Date Last Indicated Resolved Time COVID - 19 03/19/2023 03/19/2023 03/29/2023 12:1 6 AM CDT COVID - 19 05/24/2023 05/24/2023 06/03/2023 12:1 6 AM BUTTON CUTTING MACHINE OPERATOR Assessment Noted Time PHQ-9 Depression Total Score: 0 02/04/20 10:00 AM CDT documented as of this encounter Care Teams Bearing Press Machine Operator Relationship Specialty Start Date End Date Harris Beck MD PCP - General 04/11/09 07/18/22 Rodger Dawson APRN, SCHOOL BUS DISPATCHER [address] [place] [address] PCP - General Advanced Practice Nurse 07/19/22 Joe Blount DO Consulting Physician Orthopaedic Surgery 12/29/19 Jorge Wallace MD [address] [place] [phone] Consulting Physician Cardiovascular Disease - Cardiology 12/29/19 Luigi Gamez OD [address] [place] [address] Optometry 12/29/19 Varun Fofana, UZAIR [address] [place] [address] [place] [address] Chiropractic Medicine 12/29/19 Ragini Baires APRN, SCHOOL BUS DISPATCHER [address] [place] [address] Nurse Practitioner Advanced Practice Nurse 10/04/21 documented as of this encounter
[2024-12-09 12:55] LABS: Partial Thromboplastin Time 24.6 Seconds (22.3-36.8)
--- NOTE | 2024-12-09 13:43 | ECG_ITS ---
Test Date: 2024-12-09 13:52:15 Measurements Intervals White Rate: 55 P: 9 ID: [id number] QRS: 23 QRSD: 89 T: 89 QT: 441 QTc: 423 Interpretive Statements SINUS BRADYCARDIA WITH FIRST DEGREE AV BLOCK LEFT VENTRICULAR HYPERTROPHY WITH ST-T CHANGE CONSIDER INFERIOR INFARCT, AGE INDETERMINATE ABNORMAL ECG Compared to ECG 12/09/2024 10:56:33 NO SIGNIFICANT CHANGE Electronically Signed On 12-09-2024 15:59:24 CDT by Yunier Vidales D.O.
--- NOTE | 2024-12-09 14:15 | ED.CHESTPAIN ---
HPI - Chest Pain General Chief Complaint: Chest Pain Stated Complaint: n/A Time Seen by Provider: 12/09/24 11:41 History of Present Illness HPI narrative: Patient is a 79-year-old female who presents ER with chest pain. Sudden onset right-sided while she is sitting in her car. Went to her right shoulder. Was very intense but has since decreased since taking aspirin. No nausea or vomiting. No dyspnea. No exertional component. Has not had similar symptoms before. No history of heart disease/diabetes/hypertension/hyperlipidemia. She reports she does have fibromyalgia. No association with eating or drinking. Related Data Allergies Allergy/AdvReac Type Severity Reaction Status Date / Time alendronate sodium (From Allergy Gastrointestinal Verified 12/09/24 11:22 Fosamax) Upset cephalexin Allergy Rash Verified 12/09/24 11:22 tramadol Allergy Dizziness Verified 12/09/24 11:22 Review of Systems Review of Systems: All systems reviewed & are unremarkable except as noted in HPI and below Constitutional: Constitutional: Reports no additional constitutional complaints ENT: Reports system reviewed and no additional complaints, except as documented Cardiovascular: Cardiovascular: Reports no additional cardiovascular complaints Respiratory: Respiratory: Reports no additional respiratory complaints Genitourinary: Genitourinary: Reports no additional female genitourinary complaints PMFSH Past Medical History Medical History (Updated 12/09/24 @ 15:18 by Nitesh Noel MD) Fibromyalgia Surgical History Surgical History (Updated 12/09/24 @ 15:18 by Nitesh Noel MD) History of cholecystectomy Exam Narrative: GENERAL: Well-appearing, well-nourished, and in no acute distress. HEAD: Normocephalic, atraumatic. ENT: Mucous membranes moist. CHEST: Clear to auscultation. No respiratory distress. Mild tenderness with light palpation right chest wall superior to the breast. HEART: Regular rate and rhythm. Normal peripheral pulses. ABDOMEN: Soft, nontender, nondistended. EXTREMITIES: Normal range of motion. No edema. SKIN: Warm, dry, no rash. NEURO: Alert and oriented x3. PSYCH: Normal mood and affect. Course Course Emergency Course: Patient resting comfortably. No significant pain. EKG normal. Troponin negative x2. Discussed with Cardiology. Appropriate for outpatient follow-up. Discussed strict return precautions. Vital Signs Vital signs: Vital Signs Pulse Rate 59 L 12/09/24 11:15 Respiratory Rate 13 12/09/24 11:15 Blood Pressure 173/45 H 12/09/24 11:15 Pulse Oximetry 97 12/09/24 11:15 Temperature 97.6 F 12/09/24 11:23 Pulse Rate 67 12/09/24 14:30 Respiratory Rate 16 12/09/24 14:30 Blood Pressure 167/61 H 12/09/24 14:30 Pulse Oximetry 95 12/09/24 14:30 Oxygen Delivery Room Air 12/09/24 11:23 MDM - Chest Pain Lab Data 12/09/24 11:21 12/09/24 11:21 Labs: Lab Results 12/09/24 12/09/24 Range/Units 11:21 13:57 WBC 4.3 L (4.5-10.0) K/mm3 RBC 4.49 (4.2-5.4) M/mm3 Hgb 13.0 (12.0-15.0) g/dL Hct 40.8 (37.0-47.0) % MCV 90.9 (80-100) fl MCH 29.0 (26-34) pg MCHC 31.9 L (32-36) g/dl RDW 12.9 (11.5-14.5) % Plt Count 166 (150-375) k/mm3 MPV 9.7 (7.4-10.4) fl Immature Gran % (Auto) 0.5 (0-0.5) % Neut % (Auto) 59.1 (45.5-73.1) % Lymph % (Auto) 25.4 (18.3-44.2) % [place] % (Auto) 10.4 H (2.6-8.5) % Eos % (Auto) 3.7 (0-4.4) % Baso % (Auto) 0.9 (0.2-1.2) % Lymph # (Auto) 1.10 (0.9-3.2) K/mm3 [place] # (Auto) 0.5 (0.1-0.6) K/mm3 Eos # (Auto) 0.2 (0-0.3) K/mm3 Baso # (Auto) 0.0 (0.0-0.1) K/mm3 Abs Immat Gran (auto) 0.02 (0.00-0.031) K/mm3 Absolute Neuts (auto) 2.6 (1.3-6.7) K/mm3 Absolute Nucleated RBC 0.000 (0.0-0.012) K/mm3 Nucleated RBC % 0.0 (0.0-0.2) % PT 13.3 (11.1-14.7) Seconds INR 1.0 APTT 24.6 (22.3-36.8) Seconds Sodium 137 (137-145) mmol/L Potassium 4.1 (3.4-5.0) mmol/L Chloride 103 (98-107) mmol/L Carbon Dioxide 27 (22-30) mmol/L Anion Gap 7 (4-12) mmol/L BUN 15 (7-17) mg/dL Creatinine 0.66 L (0.7-1.0) mg/dL Estim Creat Clear Calc 67 ml/min Estimated GFR > 60 (59 - ) Glucose 106 (65-110) mg/dL Calcium 9.6 (8.4-10.2) mg/dL Total Bilirubin 0.4 (0.2-1.3) mg/dL AST 34 (14-36) U/L ALT 28 (6-35) U/L Alkaline Phosphatase 80 (38-126) U/L Troponin I < 0.012 < 0.012 (0.000-0.034) ng/mL Total Protein 7.2 (6.3-8.2) g/dL Albumin 4.1 (3.5-5.1) g/dL Lipase 65 (23-300) U/L Imaging Data Radiologist's impression: ITS Impressions Chest X-Ray 12/09/24 12:35 Impression: 1: Right basilar infiltrates, atelectasis versus pneumonia. ECG Data EKG #1: ECG completion date: 12/09/24 ECG completion time: 10:56 EKG Interpretation: bradycardia (58), sinus rhythm, no ST changes, normal QRS and normal QT Discharge Plan Discharge Clinical Impression: Chest pain Patient Disposition: Home Condition: Improved Instructions: Chest Pain (ED) Additional Instructions: Please return to the emergency department if you develop severe and persistent chest pain, difficulty breathing, dizziness, leg swelling or if you are coughing up blood as these can be signs of a medical emergency. Please call your doctor for a follow up appointment to determine the need for further testing. Patient Language: German Prescriptions: New ibuprofen 600 mg tablet 600 mg PO TID Qty: 20 0RF Follow-up/Referrals: Yunier Vidales DO [Physician] - 1 Week UNKNOWN,DOCTOR [Primary Care Provider] - Quality HEART score for chest pain patients History: slightly suspicious ECG: normal Age: > or = to 65 years Risk factors: 1 or 2 risk factors Troponin: < or = to 1x normal limit Heart score: 3
[2024-12-09 14:45] LABS: Troponin I < 0.012 ng/mL (0.000-0.034)
== END 2024-12-09 15:35 | disposition home or self-care (01) ==
PROVIDERS: Emergency Provider Emergency Medicine
DX: R07.9 Chest pain, unspecified (principal); M79.7 Fibromyalgia; Z90.49 Acquired absence of other specified parts of digestive tract; R00.1 Bradycardia, unspecified; I44.0 Atrioventricular block, first degree; I51.7 Cardiomegaly; R94.31 Abnormal electrocardiogram [ECG] [EKG]
CPT/HCPCS: 36415; 71046; 80053; 83690; 84484; 85025; 85610; 85730; 93005; 99284